=== PATIENT | female | born 1930 | race Caucasian/White ===

== ENCOUNTER 2017-07-02 15:17 | Observation (INO) | payer MEDICARE, BC ==
[2017-07-02] MEDS ORDERED: NS 0.9% 1000 ML* 1,000 ML IV ONE ×2 (15:45→18:18)
[2017-07-02] MEDS ORDERED: Ondansetron INJ* 2 MG/ML VIAL IV ONE ×2 (15:49→19:23)
[2017-07-02 16:47] LABS: ABS Basophils 0 10^3/ul (0-0.2); ABS Eosinophils 0 10^3/ul (0-0.6); ABS Lymphocytes 0.6 10^3/ul (1.0-4.8); ABS Monocytes 0.4 10^3/ul (0-0.8); ABS Neutrophils 6.9 10^3/ul (1.5-7.7); ABS Nucleated RBC 0 10^3/ul; Eosinophil % 0 % (0-6); Hematocrit 44 % (35-47); Hemoglobin 14.7 g/dl (12.0-16.0); Lymphocyte % 7.5 % (25-47); Mean Corpuscular HGB Conc 34 g/dl (31-36); Mean Corpuscular Hemoglobin 32 pg (27-31); Mean Corpuscular Volume 96 fL (80-97); Mean Platelet Volume 8.1 um3 (7.4-10.4); Nucleated Red Blood Cells % 0.1; Platelet Count 222 10^3/ul (150-450); Red Blood Count 4.58 10^6/ul (4.0-5.4); Red Cell Distribution Width 14 % (10.5-15)
[2017-07-02 16:57] LABS: INR 0.95 (0.77-1.02)
[2017-07-02 17:07] LABS: EGFR Non-African American 78.2 (>60)
--- NOTE | 2017-07-02 17:16 | RAD ---
INDICATION: Cough COMPARISON: Chest x-ray dated December 19, 2016 TECHNIQUE: PA and lateral views of the chest were obtained. FINDINGS: The heart and mediastinum are normal in size and contour. Similar to the prior radiograph there is mild calcification overlying the arch of the aorta. The lungs are grossly clear. There is no evidence of large pleural effusion. Visualized bones are normal for the patient's age. There is no radiographic evidence of free air beneath the diaphragm IMPRESSION: No radiographic evidence of acute cardiopulmonary disease.
--- NOTE | 2017-07-02 19:06 | ED ---
August Sykes Gabriel, scribed for Johanna Stanley MD on 07/02/17 at 1546 . GI/ HPI - HPI Summary HPI Summary: This patient is a 87 year old F BIBA to [facility] from [facility] c/o vomiting for the past couple days. The last episode was sometime yesterday. Patient reports nausea, intermittent cough, and decreased appetite. Patient denies diarrhea, ABD pain, SOB, CP, and palpitations. Hx uterine cancer - History of Current Complaint Time Seen by Provider: 07/02/17 15:31 Stated Complaint: NAUSEA/VOMITING Hx Obtained From: Patient Onset/Duration: Started Days Ago - 2, Still Present Timing: Intermittent Severity: Mild Current Severity: None Associated Signs and Symptoms: Positive: Nausea, Cough - Additional Pertinent History Primary Care Physician: LESVIA - Allergy/Home Medications Allergies/Adverse Reactions: Allergies Allergy/AdvReac Type Severity Reaction Status Date / Time diazepam Allergy Intermediate Hives Verified 07/02/17 16:11 blue dye Allergy Unknown Unknown Verified 07/02/17 16:11 Reaction Details duloxetine Allergy Unknown Unknown Verified 07/02/17 16:11 Reaction Details pregabalin AdvReac Severe Joint Pain Verified 07/02/17 16:11 meperidine AdvReac Intermediate Nausea And Verified 07/02/17 16:11 Vomiting onabotulinumtoxinA AdvReac Intermediate Nausea And Verified 07/02/17 16:11 [From Botox] Vomiting oxycodone AdvReac Intermediate Nausea And Verified 07/02/17 16:11 Vomiting propoxyphene AdvReac Intermediate Nausea And Verified 07/02/17 16:11 [From Darvocet-N] Vomiting Home Medications: Home Medications Acetaminophen TAB* [Tylenol TAB*] 650 mg PO Q4H PRN MDD 2600 mg 07/02/17 [ History Confirmed 07/02/17] Acetaminophen TAB* [Tylenol TAB*] 650 mg PO TID 07/02/17 [History Confirmed ] Calcium Carb/Mag Hydrox/Simeth [Antacid Multi-Symptom] 1 chw PO TID PRN [History Confirmed 07/02/17] Cholecalciferol CAP/TAB(NF) [Vitamin D3 CAP/TAB (NF)] 50,000 unit PO MONTHLY [History Confirmed 07/02/17] Hydrocortisone 2.5% CREAM(NF) 1 applic TOPICAL DAILY PRN 07/02/17 [History Confirmed 07/02/17] Lidocaine HCl [Aspercreme W/Lidocaine] 4 % TOPICAL Q8HR PRN 07/02/17 [History Confirmed 07/02/17] Multivit-Min/Iron/Folic/Lutein [Centrum Silver Women Tablet] 1 tab PO DAILY [History Confirmed 07/02/17] Ondansetron TAB* [Zofran 4 MG Tab*] 4 mg PO Q6H PRN 07/02/17 [History Confirmed 07/02/17] Oxymetazoline 0.05% NASAL SPR* [Afrin 0.05% NASAL SPRAY*] 2 spray BOTH NARES Q4HR PRN 07/02/17 [History Confirmed 07/02/17] Senna TAB* [Senokot TAB*] 1 tab PO BEDTIME 07/02/17 [History Confirmed 07/02/17] Vit C/E/Zn/Coppr/Lutein/Zeaxan [Preservision Areds 2 Softgel] 1 cap PO BID 07/02 [History Confirmed 07/02/17] PMH/Surg Hx/FS Hx/Imm Hx Endocrine/Hematology History: Denies: Hx Anticoagulant Therapy Cardiovascular History: Denies: Hx Auto Implanted Cardiovert Defib Musculoskeletal History: Reports: Hx Fibromyalgia, Other Musculoskeletal History - bilateral hip replacement, current arm fracture Sensory History: Reports: Hx Contacts or Glasses - pt doesn't have glassess with her Opthamlomology History: Reports: Hx Contacts or Glasses - pt doesn't have glassess with her Neurological History: Reports: Hx Dementia, Other Neuro Impairments/Disorders - fibromyalgia, insomnia - Surgical History Surgery Procedure, Year, and Place: hysterectomy. appendectomy. TKA. bilat [facility]. back surgery - Immunization History Date of Tetanus Vaccine: unk Date of Influenza Vaccine: unk - Family History Known Family History: Positive: Unknown - due to pt's dementia - Social History Alcohol Use: Rare Hx Substance Use: No Substance Use Type: Reports: None Hx Tobacco Use: No Smoking Status (MU): Never Smoked Tobacco Have You Smoked in the Last Year: No Review of Systems Negative: Palpitations, Chest Pain Positive: Cough. Negative: Shortness Of Breath Positive: Vomiting, Nausea. Negative: Abdominal Pain, Diarrhea All Other Systems Reviewed And Are Negative: Yes Physical Exam - Summary Physical Exam Summary: GENERAL: Patient is a well developed and nourished F who is lying comfortable in the stretcher. Patient is not in any acute respiratory distress. HEAD AND FACE: Normocephalic EYES: PERRLA, EOMI x 2. EARS: Hearing grossly intact. MOUTH: Oropharynx within normal limits. NECK: Supple, trachea is midline, no adenopathy, no JVD, no carotid bruit. CHEST: Symmetric, no tenderness at palpation LUNGS: crackles in the right lung CVS: Regular rate and rhythm, S1 and S2 present, no murmurs or gallops appreciated. ABDOMEN: Soft, non-tender. Bowel sounds are normal. No abdominal abnormal pulsations. EXTREMITIES: Full ROM in all major joints, no edema, no cyanosis or clubbing. NEURO: Alert and oriented x 3. No acute neurological deficits. Speech is normal and follows commands. SKIN: Dry and warm Triage Information Reviewed: Yes Vital Signs On Initial Exam: Initial Vitals Temp Pulse Resp BP Pulse Ox 36.8 C 78 16 171/80 98 07/02/17 16:04 07/02/17 16:04 07/02/17 16:04 07/02/17 16:04 07/02/17 16:04 Vital Signs Reviewed: Yes Diagnostics - Vital Signs Vital Signs Temp Pulse Resp BP Pulse Ox 07/02/17 16:04 36.8 C 78 16 171/80 98 - Laboratory Lab Results: Lab Results 07/02/17 07/02/17 07/02/17 Range/Units 16:11 16:11 16:11 WBC 8.0 (3.5-10.8) 10^3/ul RBC 4.58 (4.0-5.4) 10^6/ul Hgb 14.7 (12.0-16.0) g/dl Hct 44 (35-47) % MCV 96 (80-97) fL MCH 32 H (27-31) pg MCHC 34 (31-36) g/dl RDW 14 (10.5-15) % Plt Count 222 (150-450) 10^3/ul MPV 8.1 (7.4-10.4) um3 Neut % (Auto) 86.8 H (38-83) % Lymph % (Auto) 7.5 L (25-47) % Miller % (Auto) 5.5 (0-7) % Eos % (Auto) 0 (0-6) % Baso % (Auto) 0.2 (0-2) % Absolute Neuts (auto) 6.9 (1.5-7.7) 10^3/ul Absolute Lymphs (auto) 0.6 L (1.0-4.8) 10^3/ul Absolute Monos (auto) 0.4 (0-0.8) 10^3/ul Absolute Eos (auto) 0 (0-0.6) 10^3/ul Absolute Basos (auto) 0 (0-0.2) 10^3/ul Absolute Nucleated RBC 0 10^3/ul Nucleated RBC % 0.1 INR (Anticoag Therapy) 0.95 (0.77-1.02) APTT 34.9 (26.0-36.3) seconds Sodium 126 L (139-145) mmol/L Potassium 3.6 (3.5-5.0) mmol/L Chloride 90 L (101-111) mmol/L Carbon Dioxide 26 (22-32) mmol/L Anion Gap 10 (2-11) mmol/L BUN 17 (6-24) mg/dL Creatinine 0.71 (0.51-0.95) mg/dL Est GFR ( Amer) 100.6 (>60) Est GFR (Non-Af Amer) 78.2 (>60) BUN/Creatinine Ratio 23.9 H (8-20) Glucose 114 H (70-100) mg/dL Lactic Acid (0.5-2.0) mmol/L Calcium 9.5 (8.6-10.3) mg/dL Magnesium 1.9 (1.9-2.7) mg/dL Total Bilirubin 0.80 (0.2-1.0) mg/dL AST 26 (13-39) U/L ALT 15 (7-52) U/L Alkaline Phosphatase 66 (34-104) U/L Troponin I 0.00 (<0.04) ng/mL B-Natriuretic Peptide ( - 100) pg/mL Total Protein 8.0 (6.4-8.9) g/dL Albumin 4.9 (3.2-5.2) g/dL Globulin 3.1 (2-4) g/dL Albumin/Globulin Ratio 1.6 (1-3) Lipase 15 (11.0-82.0) U/L 07/02/17 07/02/17 Range/Units 16:11 16:11 WBC (3.5-10.8) 10^3/ul RBC (4.0-5.4) 10^6/ul Hgb (12.0-16.0) g/dl Hct (35-47) % MCV (80-97) fL MCH (27-31) pg MCHC (31-36) g/dl RDW (10.5-15) % Plt Count (150-450) 10^3/ul MPV (7.4-10.4) um3 Neut % (Auto) (38-83) % Lymph % (Auto) (25-47) % Miller % (Auto) (0-7) % Eos % (Auto) (0-6) % Baso % (Auto) (0-2) % Absolute Neuts (auto) (1.5-7.7) 10^3/ul Absolute Lymphs (auto) (1.0-4.8) 10^3/ul Absolute Monos (auto) (0-0.8) 10^3/ul Absolute Eos (auto) (0-0.6) 10^3/ul Absolute Basos (auto) (0-0.2) 10^3/ul Absolute Nucleated RBC 10^3/ul Nucleated RBC % INR (Anticoag Therapy) (0.77-1.02) APTT (26.0-36.3) seconds Sodium (139-145) mmol/L Potassium (3.5-5.0) mmol/L Chloride (101-111) mmol/L Carbon Dioxide (22-32) mmol/L Anion Gap (2-11) mmol/L BUN (6-24) mg/dL Creatinine (0.51-0.95) mg/dL Est GFR ( Amer) (>60) Est GFR (Non-Af Amer) (>60) BUN/Creatinine Ratio (8-20) Glucose (70-100) mg/dL Lactic Acid 0.8 (0.5-2.0) mmol/L Calcium (8.6-10.3) mg/dL Magnesium (1.9-2.7) mg/dL Total Bilirubin (0.2-1.0) mg/dL AST (13-39) U/L ALT (7-52) U/L Alkaline Phosphatase (34-104) U/L Troponin I (<0.04) ng/mL B-Natriuretic Peptide 416 H ( - 100) pg/mL Total Protein (6.4-8.9) g/dL Albumin (3.2-5.2) g/dL Globulin (2-4) g/dL Albumin/Globulin Ratio (1-3) Lipase (11.0-82.0) U/L Result Diagrams: 07/02/17 16:11 07/02/17 16:11 Lab Statement: Any lab studies that have been ordered have been reviewed, and results considered in the medical decision making process. - Radiology CXR Radiology Interpretation Completed By: Radiologist - No radiographic evidence of acute cardiopulmonary disease. ED physician has reviewed this radiology report. - EKG 1559 Cardiac Rate: NL EKG Rhythm: Sinus Rhythm - at 80 BPM EKG Interpretation: atrial premature complex GIGU Course/Dx - Course Assessment/Plan: This patient is a 87 year old F BIBA to [facility] from [facility] c/o vomiting for the past couple days. The last episode was sometime yesterday. Patient reports nausea, intermittent cough, and decreased appetite. Patient denies diarrhea, ABD pain, SOB, CP, and palpitations. Hx uterine cancer. CXR reveals, per radiologist, No radiographic evidence of acute cardiopulmonary disease. ED physician has reviewed this radiology report. Test results with no significant abnormalities except for a sodium of 126. In the ED course the patient was given zofran and IV fluids. The patient will be signed out to Dr. Lomeli awaiting re-eval. - Diagnoses Provider Diagnoses: Hyponatremia Discharge - Sign-Out/Discharge Documenting (check all that apply): Sign-Out Patient Signing out patient TO: Young Lomeli - Discharge Plan Referrals: Ca Gomez MD [Primary Care Provider] - The documentation as recorded by the August kennedy Gabriel accurately reflects the service I personally performed and the decisions made by , Johanna Stanley MD.
[2017-07-02 20:59] LABS: Urine Appearance Clear; Urine Blood Negative (Negative); Urine Color Yellow; Urine Ketones 1+ (Negative); Urine Protein 1+(30 mg/dL) (Negative); Urine Specific Gravity 1.015 (1.010-1.030); Urine Urobilinogen Negative (Negative)
[2017-07-02] MEDS ORDERED: Piperacillin/Tazobac ADVAN(*) 3.375 GM in NS 0.9% 100 ML* 100 ML IVPB ONE (21:00)
--- NOTE | 2017-07-02 21:05 | ED ---
Karen Sykes Elizabeth, scribed for Young Lomeli MD on 07/02/17 at 2052 . Progress - Progress Note Progress Note: Upon re-evaluation at 20:00 patient was still symptomatic 1 hour after receiving a 2nd dose of 8mg Zofran. The patient has difficulty eating. Discussed care of patient with Dr. Fontana who agreed to admit the patient to [facility] [place] [facility]. Patient will be admitted to [facility] with dx of vomiting. Re-Evaluation - Re-Evaluation 20:00 Re-Evaluation Time: 20:00 Change: Unchanged Comment: Patient is still symptomatic 1 hour after receiving 2nd dose of 8mg Zofran. The patient has difficulty eating. Course/Dx - Diagnoses Provider Diagnoses: Vomiting - Provider Notifications Discussed Care Of Patient With: Singh Tapia MD Time Discussed With Above Provider: 20:30 Instructed by Provider To: Admit As Inpatient Discharge - Sign-Out/Discharge Documenting (check all that apply): Discharge/Admit/Transfer - Discharge Plan Condition: Stable Disposition: ADMITTED TO [facility] Referrals: Ca Gomez MD [Primary Care Provider] - The documentation as recorded by the Karen kennedy Elizabeth accurately reflects the service I personally performed and the decisions made by Armani villanueva Abdul, MD.
[2017-07-02] MEDS ORDERED: PROCHLORPERAZINE INJ 5 MG/ML 2 ML VIAL IV PRN (21:28)
[2017-07-02] MEDS ORDERED: Acetaminophen TAB* 325 MG PO PRN (21:28)
[2017-07-02] MEDS ORDERED: Ondansetron 40 MG VIAL* 2 MG/ML 20 ML VIAL IV PRN (21:28)
[2017-07-02] MEDS ORDERED: traMADol TAB* 50 MG PO PRN (21:30)
[2017-07-02] MEDS ORDERED: NS 0.9% 1000 ML* 1,000 ML IV SCH (21:30)
[2017-07-02] MEDS ORDERED: hydrALAZINE IV* 20 MG/ML VIAL IV SLOW PU PRN (21:33)
[2017-07-02] MEDS ORDERED: Iohexol 300* (CONTRAST) 10 ML SDV IV ONE (21:35)
--- NOTE | 2017-07-02 22:18 | RAD ---
INDICATION: Nausea and vomiting COMPARISON: Most recent comparison CT of the brain is dated December 17, 2016 TECHNIQUE: Contiguous axial sections of the brain were obtained from the skull base to the vertex without contrast. FINDINGS: The ventricles, cisterns and sulci are within normal limits. There is very mild periventricular and subcortical white matter hypoattenuation most consistent with mild chronic small vessel disease. The henderson-white matter differentiation is adequately maintained and there is no sulcal effacement. No significant focal abnormality or mass effect is present. There is no evidence for intracranial hemorrhage. No significant focal osseous abnormality is present. The visualized portion of the paranasal sinuses appear clear. The mastoid air cells are well aerated bilaterally. IMPRESSION: No acute intracranial abnormality.
--- NOTE | 2017-07-02 22:26 | RAD ---
CLINICAL HISTORY: Nausea and vomiting. Relevant surgical history includes hysterectomy, appendectomy and "back surgery" COMPARISON: None TECHNIQUE: Contrast enhanced CT examination of the abdomen and pelvis from the lung bases through the initial tuberosities. The patient received 80 mL Omnipaque 300 intravenously prior to imaging.The patient received oral contrast as well prior to imaging. FINDINGS: VISUALIZED LUNG BASES: The visualized lung bases are grossly clear. There is no pleural effusion. ABDOMEN AND PELVIS: The superiormost portion of the hepatic dome and superior most portion of the spleen are cut from the [id number]. There is a small hiatal hernia. The visualized portions of the liver and spleen are normal. The pancreas and adrenal glands are grossly normal in appearance. The gallbladder is fluid-filled and top normal in diameter measuring 4 cm. There is no definite pericholecystic fluid. There is no hyperattenuating material in the lumen. The kidneys are normal in appearance without focal mass, calcification or signs of hydronephrosis. Evaluation of the gastrointestinal tract is limited in the absence of oral contrast. The small and large bowel are not distended. The appendix is not visualized consistent with the patient's reported surgical history. There are numerable distal colonic diverticula becoming more concentrated at the rectosigmoid colon. Streak artifact from the bilateral hip prostheses Limited evaluation of the pelvis the level of the hips. There is no gross retroperitoneal or mesenteric lymphadenopathy. The uterus is surgically absent. The abdominal aorta and iliac arteries are normal in course and diameter. Postsurgical changes of the lumbar spine include transpedicular and posterior neena fixation of L4-S5 with prosthetic intervertebral disc spacers. Degenerative changes at L2/L3 include sclerotic change of the articulating endplates. IMPRESSION: 1. Diverticulosis without definite inflammatory changes consistent with diverticulitis. 2. The gallbladder is top normal in diameter and is fluid-filled. There are no definite inflammatory changes within the limitations of CT. If the patient is exhibiting right upper quadrant tenderness specifically, superior characterization of the gallbladder can be made with ultrasound. 3. Chronic, degenerative and postsurgical changes described in the body the report unlikely to be directly related to the patient's current presentation.
[2017-07-02] MEDS ORDERED: cefTRIAXone(*) 1 GM in NS 0.9% 50 ML* 50 ML IVPB SCH (23:00)
[2017-07-02] MEDS: Heparin VIAL(*) 5000 UNITS/ML VIAL (FIVE THOUSAND) SUBCUT SCH (23:01)
[2017-07-02 23:29] LABS: ABS Basophils 0 10^3/ul (0-0.2); ABS Eosinophils 0 10^3/ul (0-0.6); ABS Lymphocytes 0.8 10^3/ul (1.0-4.8); ABS Monocytes 0.6 10^3/ul (0-0.8); ABS Neutrophils 6.9 10^3/ul (1.5-7.7); ABS Nucleated RBC 0 10^3/ul; Eosinophil % 0 % (0-6); Hematocrit 38 % (35-47); Lymphocyte % 9.8 % (25-47); Mean Corpuscular HGB Conc 34 g/dl (31-36); Mean Corpuscular Hemoglobin 32 pg (27-31); Mean Corpuscular Volume 96 fL (80-97); Nucleated Red Blood Cells % 0; Platelet Count 189 10^3/ul (150-450); Red Cell Distribution Width 14 % (10.5-15); White Blood Count 8.4 10^3/ul (3.5-10.8)
[2017-07-02] MEDS ORDERED: Saline NASAL SPRAY 0.65%* BTL BOTH NARES PRN (23:30)
[2017-07-03] MEDS ORDERED: traZODone TAB* 50 MG TAB PO SCH (01:40)
[2017-07-03 05:19] LABS: ABS Basophils 0 10^3/ul (0-0.2); ABS Eosinophils 0 10^3/ul (0-0.6); ABS Lymphocytes 0.8 10^3/ul (1.0-4.8); ABS Monocytes 0.8 10^3/ul (0-0.8); ABS Neutrophils 6.1 10^3/ul (1.5-7.7); ABS Nucleated RBC 0 10^3/ul; Eosinophil % 0 % (0-6); Hematocrit 38 % (35-47); Hemoglobin 12.8 g/dl (12.0-16.0); Lymphocyte % 10.8 % (25-47); Mean Corpuscular HGB Conc 34 g/dl (31-36); Mean Corpuscular Hemoglobin 32 pg (27-31); Mean Corpuscular Volume 96 fL (80-97); Mean Platelet Volume 8.2 um3 (7.4-10.4); Nucleated Red Blood Cells % 0; Platelet Count 195 10^3/ul (150-450); Red Blood Count 3.96 10^6/ul (4.0-5.4); Red Cell Distribution Width 13 % (10.5-15); White Blood Count 7.7 10^3/ul (3.5-10.8)
[2017-07-03 05:30] LABS: INR 1.02 (0.77-1.02)
[2017-07-03 05:45] LABS: EGFR Non-African American 82.2 (>60)
[2017-07-03] MEDS: Heparin VIAL(*) 5000 UNITS/ML VIAL (FIVE THOUSAND) SUBCUT SCH ×2 (06:24→13:35)
[2017-07-03] MEDS ORDERED: Potassium Chlor TAB* 20 MEQ TAB.ER PO ONE (08:11)
[2017-07-03] MEDS: Gabapentin CAP(*) 100 MG PO SCH ×2 (08:31→13:10)
--- NOTE | 2017-07-03 08:35 | HP ---
CC: Dr. Gomez * HISTORY AND PHYSICAL: DATE OF ADMISSION: 07/02/17 PRIMARY CARE PROVIDER: Dr. Gomez. ATTENDING PHYSICIAN WHILE IN THE HOSPITAL: Beto Fontana MD * (report dictated by Donnell Martínez NP). CHIEF COMPLAINT: 1. Nausea. 2. Vomiting. HISTORY OF PRESENT ILLNESS: Mrs. Jones is an 87-year-old female patient. She has a history of dementia, fibromyalgia, insomnia, uterine cancer, rheumatoid arthritis, history of depression, and anxiety. She also carries a history of neuropathy, history of migraines and insomnia. She is coming into our ER today, because she says that the last couple of days she has had progressively worsening nausea and vomiting. She has had headache just prior to and during the initial ER visit, but there is no headache now. She states she had been having nausea, vomiting. It is no worse and her appetite has been down. She does not really been feeling like eating because she is nauseous. She denies any abdominal discomfort. There have been no fevers, cough. No diarrhea. She said she had a bowel movement yesterday. She denies feeling bloated or distended. She says that she has no headache now but she does note that her blood pressure has been running high and they have been keeping an eye on her according to the patient at [place] where she is from. There have been no reports of chest pain. No reports of shortness of breath. She is clearly having nausea with vomiting and no abdominal discomfort. She came into the ED today. She required several rounds of antiemetics but despite that she is still nauseous, but really eating. She appeared to be dehydrated, possibly UTI and we were asked to evaluate for admission. PAST MEDICAL HISTORY: Significant for: 1. Dementia. 2. Fibromyalgia. 3. Insomnia. 4. Uterine cancer. 5. Rheumatoid arthritis. 6. Anxiety. 7. Depression. 8. Neuropathy. 9. Insomnia. 10. Migraines. PAST SURGICAL HISTORY: According to the patient, she has had a left total hip replacement and she has had a right total knee replacement. She has had a hysterectomy and appendectomy. MEDICATIONS: Home meds according to the list that was provided by [facility] include: 1. Zofran 4 mg every 6 hours as needed. 2. Tramadol 50 mg every 6 hours as needed. 3. Afrin nasal spray, two sprays both naris every 4 hours as needed. 4. Robitussin 10 cc p.o. every 6 hours as needed. 5. Calcium carbonate with magnesium hydroxide and simethicone one tablet p.o. t.i.d. as needed. 6. Lidocaine 4% topically every 8 hours as needed. 7. Hydrocortisone cream 2.5% one application topically daily as needed. 8. Tylenol 650 mg every 4 hours as needed. 9. Gabapentin 200 mg p.o. t.i.d. 10. Tylenol 650 mg p.o. t.i.d. 11. PreserVision one capsule p.o. b.i.d. 12. Plaquenil 200 mg p.o. b.i.d. 13. Genteal two drops both eyes b.i.d. as needed. 14. Colace 100 mg p.o. b.i.d. 15. Vitamin D3 50,000 units p.o. monthly. 16. Trazodone 100 mg at bedtime. 17. Ultram 50 mg at bedtime. 18. Zoloft 100 mg p.o. at bedtime. 19. Senna one tablet at bedtime. 20. MiraLAX 17 g p.o. daily. 21. Multivitamin one tablet p.o. daily. ALLERGIES: Her allergy to medications include VALIUM, B12, CYMBALTA, LYRICA, DEMEROL, BOTOX, OXYCODONE, and DARVOCET. FAMILY HISTORY: She said both her parents of old age. SOCIAL HISTORY: She does not smoke, does not drink. Surrogate decision maker is her daughter, Lizbeth, who I did call and update and patient does reside at [place]. REVIEW OF SYSTEMS: There is no documented fever. She denies having any significant weight change. There is no ear discharge. She denies having any rhinorrhea. No sore throat. No thyroid enlargement. Denied any chest pain. There is no orthopnea. There is no nocturnal dyspnea. She denies any abdominal pain. There was nausea. There was vomiting. There is no dysuria, no frequency, no seizure. No loss of consciousness, no pruritus, no skin ulcerations. PHYSICAL EXAMINATION GENERAL: At this time, Mrs. Jones is an 87-year-old female patient. She is sitting in the ED stretcher. She does not appear to be in any acute distress. VITAL SIGNS: Blood pressure was 171/86, last blood pressure on the monitor was 142/81, pulse was 79, respirations were 18, O2 sat 96%, temperature 98. HEENT: Head: Atraumatic and normocephalic. Eyes: EOMs are intact. Sclerae are anicteric, not pale. Throat: Oral mucosa appears to be moist. No oropharyngeal erythema. NECK: Supple. LUNGS: Clear to auscultation. No wheezes, rales or rhonchi. HEART: Sounds S1, S2. Regular rate and rhythm. No murmurs, rubs or gallops. ABDOMEN: Bowel sounds hyperactive. She was nondistended, flat, nontender. EXTREMITIES: Pulses were 2+ throughout. She is able to move all 4 extremities with 5/5 strength. NEUROLOGIC: She is awake, alert. She is oriented to herself and place, but confused to time. Speech clear. Tongue midline. Fire Eater are equal. No gross focal deficits. SKIN: Grossly intact. DIAGNOSTIC STUDIES/LAB DATA: Her labs today revealing WBC of 8.0, RBC of 4.58 , hemoglobin 14.7, hematocrit 44, platelet count 222. The INR was 0.95, PTT of 34.9. The sodium was 136, potassium of 3.6, chloride of 90, bicarb 26, BUN 17, creatinine of 0.71, glucose of 114, lactate 0.8, calcium 9.5, mag 1.9. Total bili 0.8. AST 26, ALT 15. Alk phos was 66, troponin 0. BNP of 416. Albumin 4.9, lipase of 15. Urine showed 1+ protein, 1+ ketones, 1+ leukocyte esterase, 2 + rbc. She did have a chest x-ray obtained today, impression: No radiographic evidence of acute cardiopulmonary disease. She did have an EKG obtained today, which shows a normal sinus rhythm with PAC rate of 80. I did not appreciate any ST elevation or T-wave inversion noted on this EKG. Compared to the previous EKG, it does appear to be similar. Old medical records were reviewed. ASSESSMENT AND PLAN: Mrs. Jones is an 87-year-old female patient coming into the emergency department today with complaints of nausea, vomiting. She did have a headache on initial presentation but none now. We were asked to evaluate her. She will be admitted under observation status for: 1. Intractable nausea and vomiting. Etiology is unclear. She may have a gastroenteritis, although this is atypical given the fact that she does not have any diarrhea with it. There has been no fever. My plan would be to just check a CT abdomen and pelvis to make sure there is no acute abdominal pathology that we are missing here. She is not really tender. She is at risk for obstruction but she had a bowel movement yesterday, so I think it is less likely on the list. My plan will be to give her clear liquids, IV fluids, antiemetics, continue with supportive care, and follow. 2. Dementia. Continue meds as prescribed and supportive care. 3. Fibromyalgia. Continue meds as prescribed. 4. Insomnia. We will continue her trazodone. 5. Osteoarthritis. Continue her Plaquenil. 6. Uterine cancer. Follow up with PCP. 7. Depression and anxiety. Continue meds as prescribed. 8. Neuropathy. Continue her meds as prescribed. 9. History of migraines. P.r.n. Tylenol has been ordered. 10. Code status: She does wish to be a DNR. 11. Fluids, electrolytes, and nutrition: She can have a clear liquid diet. 12. DVT prophylaxis: I have ordered heparin subcutaneous. TIME SPENT: Time spent on the admission was 60 minutes; greater than half of the time was spent [id number] with the patient obtaining my history and physical, other half of the time was spent going over the plan of care with the patient and implementing plan of care. I did discuss the plan of care with my attending, Dr. Fontana, he is in agreement. DONNELL MARTÍNEZ, HARVEY [id number]/CPS #: [id number] LIZA
[2017-07-03] MEDS ORDERED: Hydroxychloroquine TAB* 200 MG PO SCH (09:00)
[2017-07-03] MEDS ORDERED: Docusate CAP* 100 MG PO SCH (09:00)
[2017-07-03 11:59] VITALS: BP 144/75
[2017-07-03] MEDS ORDERED: Senna TAB PO SCH (21:00)
[2017-07-03] MEDS ORDERED: Sertraline* 100 MG TAB PO SCH (21:00)
--- NOTE | 2017-07-04 08:40 | DS ---
ADDENDUM NOW INCLUDED ON THIS REPORT CC: Ca Gomez MD * DISCHARGE SUMMARY: DATE OF ADMISSION: 07/02/17 DATE OF DISCHARGE: 07/03/17 PATIENT OF: Beto Fontana MD ATTENDING HOSPITALIST: Usman Barrios MD * (DICTATED BY ROSARIO AMBROSE) PRIMARY CARE PHYSICIAN: Ca Gomez MD CHIEF COMPLAINT: Nausea and vomiting. CONSULTATIONS: None. ADMITTING DIAGNOSES: 1. Nausea and vomiting. 2. Dementia. 3. Fibromyalgia. 4. Insomnia. 5. History of uterine cancer. 6. Rheumatoid arthritis. 7. Anxiety and depression. 8. Neuropathy. 9. Migraine headaches. DISCHARGE DIAGNOSES: 1. Nausea and vomiting. 2. Dementia. 3. Fibromyalgia. 4. Insomnia. 5. History of uterine cancer. 6. Rheumatoid arthritis. 7. Anxiety and depression. 8. Neuropathy. 9. Migraine headaches. 10. Possible gastroenteritis. BRIEF MEDICAL HISTORY: Mrs. Jones is a pleasant 87-year-old female with history of dementia, fibromyalgia and rheumatoid arthritis as well as depression and anxiety, who presented to the emergency room last night with complaints of 2 days' history of progressively worsening nausea and vomiting. The patient notes that she has had a little headache prior to the onset of symptoms, but denies any headache upon presentation. She denies any associated abdominal pain, changes in the bowel habits, fever or chills. She has been in her normal state of health until 2 days ago when she started to have these episodes. Because of her progressive nausea and vomiting, she is not able to eat anything or keep any fluid down. She denies any recent sick contact; however , she notes that prior to the onset of her symptoms she has been out to an organic farm and had lunch there that consisted of some pork sandwich. She presented to the emergency room and had laboratory workup that revealed hyponatremia and hypokalemia, but her white count was normal and had a CT scan done of the abdomen and pelvis with no acute findings noted. The patient was given some Zofran in the emergency room; however, she was not able to tolerate any fluid oral intake for which we were contacted to see the patient for possible admission. HOSPITAL COURSE: The patient was seen and admitted under hospitalist services for observation overnight. She received a couple of doses of Zofran and kept on clear liquid diet and was given IV fluid hydration. She was noted to have hyponatremia for which her I's and O's were restricted with significant improvement of her sodium on that following morning's labs. She was noted also to have hypokalemia, which was replaced using oral supplements. The patient was doing much better on the following morning and denied any recurrent nausea or vomiting overnight. Her vitals were stable and she showed no evidence of febrile illness or tachycardia. We started her on clear liquid diet for breakfast and then advanced to regular diet for lunch which she tolerated them both. She was ambulatory out of bed and denied any recurrent symptoms of nausea or vomiting. On exam today, she was alert and oriented, comfortable and breathing was nonlabored. Her lungs were clear to auscultation bilaterally. Her heart was regular rate and rhythm without rubs, murmurs, or gallops. Her abdomen was soft, nontender, and nondistended without hernias, masses, or hepatosplenomegaly. Her vitals were reviewed and they were all within normal limits. We were planning on discharging her back to [facility] today and will be seen by her primary care physician next week for a followup. DISCHARGE MEDICATIONS: Include: 1. Tylenol 650 mg p.o. q.6 hours as needed for pain or fever. 2. Calcium carbonate 1 chewable tablet 3 times daily as needed for heartburn. 3. Cholecalciferol tablets 50,000 units p.o. daily. 4. Dextran/hypromellose 2 drops in both eyes once daily. 5. Colace 100 mg p.o. b.i.d. 6. Neurontin 200 mg p.o. t.i.d. 7. Robitussin 10 mL p.o. q.6 hours as needed for cough. 8. Hydrocortisone cream 2.5% one application topically as directed. 9. Plaquenil 200 mg p.o. b.i.d. 10. Lidocaine cream 4% topical use as directed. 11. Multivitamin 1 tablet daily. 12. Zofran 4 mg tablets q.6 hours as needed for nausea. 13. MiraLAX 17 g p.o. q.a.m. as needed for constipation. 14. Senokot 1 tablet p.o. q.h.s. 15. Zoloft 100 mg p.o. q.h.s. 16. Tramadol 50 mg p.o. q.6 hours as needed for pain. 17. Trazodone 100 mg p.o. q.h.s. PROBLEM LIST: Nausea and vomiting, resolved overnight, likely in account to gastroenteritis with the absence of any diarrhea. The patient had recovered well after IV fluid hydration. She is able to tolerate p.o. fluid and diet and will be discharged home in a stable condition. ADDENDUM: DISCHARGE SUMMARY: After the patient was discharged from the hospital and discharge summary was dictated, there was a flag on her chart regarding microbiology findings. Her urine culture apparently grew E. coli with moderate amount and sensitivity report was pending at the time of this dictation. I have reviewed the allergy list the patient has and we will plan on covering her with Macrobid 100 mg b.i.d. for 5 days to cover for urinary tract infection possibility. I have called her residence at [facility] and spoke to her nurse, and the prescription was electronically submitted to her pharmacy, and the patient will start taking her Macrobid as of tonight and we will plan to follow up with her next week with primary care physician. ROSARIO AMBROSE [id number]/CPS #: [id number]/CPS #: [id number] LIZA
--- NOTE | 2017-07-04 13:04 | DS ---
ADDENDUM: DISCHARGE SUMMARY: After the patient was discharged from the hospital and discharge summary was dictated, there was a flag on her chart regarding microbiology findings. Her urine culture apparently grew E. coli with moderate amount and sensitivity report was pending at the time of this dictation. I have reviewed the allergy list the patient has and we will plan on covering her with Macrobid 100 mg b.i.d. for 5 days to cover for urinary tract infection possibility. I have called her residence at [place] and spoke to her nurse and the prescription was electronically submitted to her pharmacy, and the patient will start taking her Macrobid as of tonight and we will plan to follow up with her next week with primary care physician. ROSARIO AMBROSE [id number]/CPS #: [id number] MTDD
== END 2017-07-03 14:05 | disposition home or self-care (01) ==
LOC: ED 15:17 → MED 21:24
PROVIDERS: ADMIT Hospitalist; ATTEND Internal Medicine
DX: R11.2 Nausea with vomiting, unspecified (principal); F03.90 Unspecified dementia, unspecified severity, without behavioral disturbance, psychotic disturbance, mood disturbance, and anxiety; M79.7 Fibromyalgia; G47.00 Insomnia, unspecified; M06.9 Rheumatoid arthritis, unspecified; F41.8 Other specified anxiety disorders; G43.909 Migraine, unspecified, not intractable, without status migrainosus; G62.9 Polyneuropathy, unspecified; Z85.42 Personal history of malignant neoplasm of other parts of uterus; Z79.899 Other long term (current) drug therapy; Z88.8 Allergy status to other drugs, medicaments and biological substances; M19.90 Unspecified osteoarthritis, unspecified site; K57.90 Diverticulosis of intestine, part unspecified, without perforation or abscess without bleeding; I49.1 Atrial premature depolarization
CPT/HCPCS: 36415; 70450; 71046; 74177; 80048; 80053; 81003; 81015; 83605; 83690; 83735; 83880; 84484; 85025; 85610; 85730; 87077; 87086; 87186; 87641; 93005; 96365; 96372; 96375; 99284; A9270-GY; G0378; J0696; J0780; J1644; J2543; Q9967

== ENCOUNTER 2017-09-29 02:09 | Emergency (ER) | payer MEDICARE, BC ==
[2017-09-29] MEDS ORDERED: Ondansetron ODT TAB* 4 MG ONE (02:21)
[2017-09-29] MEDS ORDERED: Ondansetron ODT TAB* 4 MG PO ONE (02:22)
[2017-09-29] MEDS ORDERED: NS 0.9% 1000 ML* 2,000 ML IV ONE (02:41)
--- NOTE | 2017-09-29 03:20 | ED ---
Complex/Multi-Sys Presentation - HPI Summary HPI Summary: Pt is 87 y/o F BIBA to [facility] c/o severe nausea since yesterday night. She has been stick to her stomach and vomiting since yesterday night, but denies abdominal pain. Pt also denies diarrhea or fever. During the day today she felt fine and was able to eat, but at night she became ill again. Pt lives in [facility]. - History Of Current Complaint Chief Complaint: EDNauseaVomitDiarrh Time Seen by Provider: 09/29/17 02:37 Hx Obtained From: Patient Onset/Duration: Lasting Hours, Still Present Severity Currently: Severe Aggravating Factor(s): Nothing Alleviating Factor(s): Nothing Associated Signs And Symptoms: Positive: Nausea, Vomiting, Other - NEGATIVE: diarrhea, fever. Negative: Abdominal Pain - Allergies/Home Medications Allergies/Adverse Reactions: Allergies Allergy/AdvReac Type Severity Reaction Status Date / Time diazepam Allergy Intermediate Hives Verified 07/02/17 16:11 blue dye Allergy Unknown Unknown Verified 07/02/17 16:11 Reaction Details duloxetine Allergy Unknown Unknown Verified 07/02/17 16:11 Reaction Details pregabalin AdvReac Severe Joint Pain Verified 07/02/17 16:11 meperidine AdvReac Intermediate Nausea And Verified 07/02/17 16:11 Vomiting onabotulinumtoxinA AdvReac Intermediate Nausea And Verified 07/02/17 16:11 [From Botox] Vomiting oxycodone AdvReac Intermediate Nausea And Verified 07/02/17 16:11 Vomiting propoxyphene AdvReac Intermediate Nausea And Verified 07/02/17 16:11 [From Darvocet-N] Vomiting PMH/Surg Hx/FS Hx/Imm Hx Endocrine/Hematology History: Denies: Hx Anticoagulant Therapy, Hx Diabetes Cardiovascular History: Denies: Hx Auto Implanted Cardiovert Defib, Hx Hypertension Musculoskeletal History: Reports: Hx Arthritis, Hx Fibromyalgia, Other Musculoskeletal History - bilateral hip replacement, arm fracture Sensory History: Reports: Hx Contacts or Glasses - pt doesn't have glassess with her Denies: Hx Deafness, Hx Hearing Aid Opthamlomology History: Reports: Hx Contacts or Glasses - pt doesn't have glassess with her Neurological History: Reports: Hx Dementia, Hx Headaches, Other Neuro Impairments/Disorders - fibromyalgia, insomnia - Cancer History Cancer Type, 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 appendectomy. TKA. bilat [facility]. back surgery - Immunization History Date of Tetanus Vaccine: unk Date of Influenza Vaccine: unk Infectious Disease History: No Infectious Disease History: Denies: Traveled Outside the [place] in Last 30 Days - Family History Known Family History: Positive: Unknown - due to pt's dementia - Social History Alcohol Use: Rare Hx Substance Use: No Substance Use Type: Reports: None Hx Tobacco Use: No Smoking Status (MU): Never Smoked Tobacco Have You Smoked in the Last Year: No Review of Systems Negative: Fever Positive: Vomiting, Nausea. Negative: Abdominal Pain, Diarrhea All Other Systems Reviewed And Are Negative: Yes Physical Exam - Summary Physical Exam Summary: Appearance: Well-appearing, Well-nourished, lying in bed comfortably Skin: Warm, dry, no obvious rash Eyes: sclera anicteric, no conjunctival pallor ENT: mucous membranes moist, pharynx appears normal Neck: Supple, nontender Respiratory: Clear to auscultation, no signs of respiratory distress Cardiovascular: Normal S1, S2. No murmurs. Normal distal pulses in tibial and radial bilaterally. Abdomen: Soft, nontender, normal active bowel sounds present Musculoskeletal: Normal, Strength/ROM Intact Neurological: A&Ox3, awake and alert, mentation is normal, speech is fluent and appropriate Psychiatric: affect is normal, does not appear anxious or depressed Triage Information Reviewed: Yes Vital Signs On Initial Exam: Initial Vitals Temp Pulse Resp BP Pulse Ox 97.7 F 77 22 140/102 97 09/29/17 02:12 09/29/17 02:12 09/29/17 02:12 09/29/17 02:12 09/29/17 02:12 Vital Signs Reviewed: Yes Diagnostics - Vital Signs Vital Signs Temp Pulse Resp BP Pulse Ox 09/29/17 02:12 97.7 F 77 22 140/102 97 - Laboratory Result Diagrams: 09/29/17 03:17 09/29/17 03:17 Lab Statement: Any lab studies that have been ordered have been reviewed, and results considered in the medical decision making process. - EKG 02:58 Cardiac Rate: NL - 76 bpm EKG Rhythm: Sinus Rhythm Complex Multi-Symp Course/Dx Course Of Treatment: This is an elderly woman with some baseline dementia who presents tonight with nausea and vomiting. She has not had any abdominal pain nor any diarrhea. Her exam is quite benign with a soft abdomen and no tenderness. Laboratory studies are notable for moderate hyponatremia which she has had before. She was medicated with Zofran and given IV fluids, and at present feels much better. She denies any pain or nausea at this point and would like to go home. - Diagnoses Provider Diagnoses: Nausea and vomiting Discharge - Sign-Out/Discharge Documenting (check all that apply): Patient Departure - Discharge Plan Condition: Improved Disposition: HOME Prescriptions: Ondansetron [Zofran Odt] 8 mg PO Q6HR PRN #12 tab.rapdis PRN Reason: Nausea Patient Education Materials: Acute Nausea and Vomiting (ED) Referrals: Ca Gomez MD [Primary Care Provider] - - Billing Disposition and Condition Condition: IMPROVED Disposition: Home - Attestation Statements Document Initiated by Nereydaibe: Yes Documenting Scribe: Beka Garcia Provider For Whom Charlie is Documenting (Include Credential): Boris Adamson MD Scribe Attestation: Beka Sykes, scribed for Boris Adamson MD on 09/29/17 at 0601. Scribe Documentation Reviewed: Yes Provider Attestation: The documentation as recorded by the scribBeka gómez accurately reflects the service I personally performed and the decisions made by , Boris Adamson MD
[2017-09-29 03:28] LABS: ABS Basophils 0 10^3/ul (0-0.2); ABS Eosinophils 0 10^3/ul (0-0.6); ABS Lymphocytes 0.6 10^3/ul (1.0-4.8); ABS Monocytes 0.3 10^3/ul (0-0.8); ABS Neutrophils 7.2 10^3/ul (1.5-7.7); ABS Nucleated RBC 0 10^3/ul; Eosinophil % 0 % (0-6); Hematocrit 40 % (35-47); Hemoglobin 13.9 g/dl (12.0-16.0); Lymphocyte % 7.1 % (25-47); Mean Corpuscular HGB Conc 35 g/dl (31-36); Mean Corpuscular Hemoglobin 33 pg (27-31); Mean Corpuscular Volume 95 fL (80-97); Mean Platelet Volume 8.1 um3 (7.4-10.4); Nucleated Red Blood Cells % 0.1; Platelet Count 208 10^3/ul (150-450); Red Blood Count 4.19 10^6/ul (4.00-5.40); Red Cell Distribution Width 13 % (10.5-15); White Blood Count 8.1 10^3/ul (3.5-10.8)
[2017-09-29 03:51] LABS: EGFR Non-African American 86.6 (>60)
[2017-09-29 04:34] VITALS: BP 162/97
== END 2017-09-29 04:35 | disposition home or self-care (01) ==
LOC: ED 02:09
DX: R11.2 Nausea with vomiting, unspecified (principal); Z88.5 Allergy status to narcotic agent; Z88.8 Allergy status to other drugs, medicaments and biological substances; N39.0 Urinary tract infection, site not specified; Z90.710 Acquired absence of both cervix and uterus
CPT/HCPCS: 36415; 80053; 83605; 83690; 85025; 93005; 96360; 99283; A9270-GY

== ENCOUNTER 2017-09-29 17:54 | Emergency (ER) | payer MEDICARE, BC ==
[2017-09-29] MEDS ORDERED: NS 0.9% 1000 ML* 1,000 ML IV ONE (19:09)
--- NOTE | 2017-09-29 19:13 | ED ---
GI/ HPI - HPI Summary HPI Summary: This patient is an 87 year old F BIBA to [facility] accompanied by family with a chief complaint of nausea that began yesterday. The patient rates the pain 0/10 in severity. Symptoms aggravated by nothing. Symptoms alleviated by nothing. Patient reports decreased appetite. Patient denies diarrhea and abd pain. Pt was at [facility] earlier for these symptoms, and was diagnosed with nausea and vomiting. Per family, assisted living facility reports that the patient had been nauseous and dry heaving. - History of Current Complaint Chief Complaint: EDGeneral Time Seen by Provider: 09/29/17 19:01 Stated Complaint: N/V Hx Obtained From: Patient, Family/Hearing Aid Repair Technician Onset/Duration: Started Days Ago, Atraumatic, Still Present Timing: Constant Severity: Mild Current Severity: Mild Pain Intensity: 0 Location of Pain: None Associated Signs and Symptoms: Positive: Other: - Positive decreased appetite. Negative diarrhea and abd pain Aggravating Factor(s): Nothing Alleviating Factor(s): Nothing - Additional Pertinent History Primary Care Physician: LESV[facility] - Allergy/Home Medications Allergies/Adverse Reactions: Allergies Allergy/AdvReac Type Severity Reaction Status Date / Time diazepam Allergy Intermediate Hives Verified 09/29/17 18:05 blue dye Allergy Unknown Unknown Verified 09/29/17 18:05 Reaction Details duloxetine Allergy Unknown Unknown Verified 09/29/17 18:05 Reaction Details pregabalin AdvReac Severe Joint Pain Verified 09/29/17 18:05 meperidine AdvReac Intermediate Nausea And Verified 09/29/17 18:05 Vomiting onabotulinumtoxinA AdvReac Intermediate Nausea And Verified 09/29/17 18:05 [From Botox] Vomiting oxycodone AdvReac Intermediate Nausea And Verified 09/29/17 18:05 Vomiting propoxyphene AdvReac Intermediate Nausea And Verified 09/29/17 18:05 [From Darvocet-N] Vomiting Home Medications: Home Medications Lidocaine HCl [Aspercreme W/Lidocaine] 4 % TOPICAL Q8HR PRN 09/29/17 [History Confirmed 09/29/17] PMH/Surg Hx/FS Hx/Imm Hx Previously Healthy: No Endocrine/Hematology History: Denies: Hx Anticoagulant Therapy, Hx Diabetes Cardiovascular History: Denies: Hx Auto Implanted Cardiovert Defib, Hx Hypertension Musculoskeletal History: Reports: Hx Arthritis, Hx Fibromyalgia, Other Musculoskeletal History - bilateral hip replacement, arm fracture Sensory History: Reports: Hx Contacts or Glasses - pt doesn't have glassess with her Denies: Hx Deafness, Hx Hearing Aid Opthamlomology History: Reports: Hx Contacts or Glasses - pt doesn't have glassess with her Neurological History: Reports: Hx Dementia, Hx Headaches, Other Neuro Impairments/Disorders - fibromyalgia, insomnia - Cancer History Cancer Type, 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 appendectomy. TKA. bilat [facility]. back surgery - Immunization History Date of Tetanus Vaccine: unk Date of Influenza Vaccine: unk Infectious Disease History: No Infectious Disease History: Denies: Traveled Outside the [place] in Last 30 Days - Family History Known Family History: Positive: Unknown - due to pt's dementia - Social History Occupation: Retired Lives: Assisted Living Alcohol Use: Rare Hx Substance Use: No Substance Use Type: Reports: None Hx Tobacco Use: No Smoking Status (MU): Never Smoked Tobacco Have You Smoked in the Last Year: No Review of Systems Negative: Chills Positive: Nausea, Other - Positive decreased appetite. Negative: Abdominal Pain , Diarrhea All Other Systems Reviewed And Are Negative: Yes Physical Exam - Summary Physical Exam Summary: Appearance: Well-appearing, Well-nourished, lying in bed comfortably Skin: Warm, dry, no obvious rash Eyes: sclera anicteric, no conjunctival pallor ENT: mucous membranes moist, pharynx appears normal Neck: Supple, nontender Respiratory: Clear to auscultation, no signs of respiratory distress Cardiovascular: Normal S1, S2. No murmurs. Normal distal pulses in tibial and radial bilaterally. Abdomen: Soft, nontender, normal active bowel sounds present, not distended Musculoskeletal: Normal, Strength/ROM Intact Neurological: A&Ox3, awake and alert, mentation is normal, speech is fluent and appropriate Psychiatric: affect is normal, does not appear anxious or depressed Triage Information Reviewed: Yes Vital Signs On Initial Exam: Initial Vitals Temp Pulse Resp BP Pulse Ox 99.2 F 83 15 168/95 98 09/29/17 18:01 09/29/17 18:01 09/29/17 18:01 09/29/17 18:01 09/29/17 18:01 Vital Signs Reviewed: Yes Diagnostics - Vital Signs Vital Signs Temp Pulse Resp BP Pulse Ox 09/29/17 18:01 99.2 F 78 20 168/95 97 - Laboratory Result Diagrams: 09/29/17 19:28 09/29/17 19:28 Lab Statement: Any lab studies that have been ordered have been reviewed, and results considered in the medical decision making process. - Additional Comments Diagnostic Additional Comments: An EKG taken at 1944 reveals NSR at 79BPM, P waves occasional PACs and no ischemic changes. GIGU Course/Dx - Diagnoses Provider Diagnoses: Urinary tract infection Discharge - Sign-Out/Discharge Documenting (check all that apply): Patient Departure - Discharge Plan Condition: Good Disposition: HOME Prescriptions: Cephalexin CAP* [Keflex CAP*] 500 mg PO QID 10 Days #40 cap Patient Education Materials: Urinary Tract Infection in Women (ED) Referrals: Ca Gomez MD [Primary Care Provider] - - Billing Disposition and Condition Condition: GOOD Disposition: Home - Attestation Statements Document Initiated by Scribe: Yes Documenting Scribe: Asha Andres Provider For Whom Scribe is Documenting (Include Credential): Boris Adamson MD Scribe Attestation: Asha Sykes, scribed for Boris Adamson MD on 09/30/17 at 0419. Scribe Documentation Reviewed: Yes Provider Attestation: The documentation as recorded by the Asha kennedy accurately reflects the service I personally performed and the decisions made by me, Boris Adamson MD
[2017-09-29 19:35] LABS: ABS Basophils 0 10^3/ul (0-0.2); ABS Eosinophils 0 10^3/ul (0-0.6); ABS Lymphocytes 0.7 10^3/ul (1.0-4.8); ABS Monocytes 0.6 10^3/ul (0-0.8); ABS Neutrophils 7.1 10^3/ul (1.5-7.7); ABS Nucleated RBC 0 10^3/ul; Eosinophil % 0 % (0-6); Hematocrit 40 % (35-47); Hemoglobin 13.8 g/dl (12.0-16.0); Lymphocyte % 7.8 % (25-47); Mean Corpuscular HGB Conc 34 g/dl (31-36); Mean Corpuscular Hemoglobin 33 pg (27-31); Mean Corpuscular Volume 96 fL (80-97); Mean Platelet Volume 8.1 um3 (7.4-10.4); Nucleated Red Blood Cells % 0; Platelet Count 228 10^3/ul (150-450); Red Blood Count 4.19 10^6/ul (4.00-5.40); Red Cell Distribution Width 13 % (10.5-15); White Blood Count 8.4 10^3/ul (3.5-10.8)
[2017-09-29 19:57] LABS: EGFR Non-African American 85.1 (>60)
[2017-09-29 20:35] LABS: Urine Appearance Cloudy; Urine Blood Negative (Negative); Urine Color Yellow; Urine Ketones 1+ (Negative); Urine Protein 2+(100 mg/dL) (Negative); Urine Red Blood Cell 3+(>10/hpf) (Absent); Urine Specific Gravity 1.018 (1.010-1.030); Urine Urobilinogen Negative (Negative); Urine White Blood Cell 1+(6-10/hpf) (Absent)
[2017-09-29] MEDS ORDERED: Cephalexin CAP* 500 MG PO ONE (21:49)
[2017-09-29 23:01] VITALS: BP 131/85
== END 2017-09-29 23:01 | disposition home or self-care (01) ==
LOC: ED 17:54
DX: N39.0 Urinary tract infection, site not specified (principal); R11.2 Nausea with vomiting, unspecified; Z88.8 Allergy status to other drugs, medicaments and biological substances; Z88.5 Allergy status to narcotic agent; Z90.710 Acquired absence of both cervix and uterus
CPT/HCPCS: 36415; 80048; 81003; 81015; 83605; 85025; 87086; 93005; 96360; 96361; 99283; A9270-GY

== ENCOUNTER 2017-11-01 18:06 | Inpatient (IN) | payer MEDICARE, OTHER ==
[2017-11-01] MEDS ORDERED: NS 0.9% 1000 ML* 1,000 ML IV ONE (19:07)
[2017-11-01] MEDS ORDERED: Ondansetron INJ* 2 MG/ML VIAL IV ONE (19:07)
--- NOTE | 2017-11-01 19:37 | ED ---
Complex/Multi-Sys Presentation - HPI Summary HPI Summary: A 87 y/o female accompanied by her family JEANCARLOS presents to ED c/o nausea and vomiting. In the ED room, the patient has a pulse of 79 BPM, O2 saturation of 94 % and blood pressure of 197/127. As per triage, "pt woke up today with nausea and vomiting. pt denies chest pain, SOB, fevers/chills, diarrhea". According to the patient, she has been experiencing nausea and vomiting. She denies any chest pain, fevers, diarrhea, constipation or abdominal pain. She additionally denied any chills, but her family insisted that she has been asking for warm blankets. As per family, the symptoms may have started yesterday as she did not feel good and had no appetite. The patient has never experienced these kinds of symptoms previously. As per daughter, the patient was in the ED a couple weeks ago for the same symptoms. She was tested for UTI and was prescribed some medications, but her PCP took her off those medications and put her on new ones because she was still exhibiting stomach issues. The patient is not complaining of abdominal pain, but at the [facility] [place], the patient stated that she had abdominal pain earlier. The family is unsure because they do not live with her. Throughout the examination, the patient stated, "Lizbeth, I don't feel good, Lizbeth please". PMHx of uterine removal surgery. - History Of Current Complaint Chief Complaint: EDNauseaVomitDiarrh Time Seen by Provider: 11/01/17 18:51 Hx Obtained From: Patient Onset/Duration: Sudden Onset, Lasting Days, Still Present Timing: Constant Location: Negative Associated Signs And Symptoms: Positive: Nausea, Vomiting - Allergies/Home Medications Allergies/Adverse Reactions: Allergies Allergy/AdvReac Type Severity Reaction Status Date / Time diazepam Allergy Intermediate Hives Verified 11/01/17 19:21 blue dye Allergy Unknown Unknown Verified 11/01/17 19:21 Reaction Details duloxetine Allergy Unknown Unknown Verified 11/01/17 19:21 Reaction Details pregabalin AdvReac Severe Joint Pain Verified 11/01/17 19:21 meperidine AdvReac Intermediate Nausea And Verified 11/01/17 19:21 Vomiting onabotulinumtoxinA AdvReac Intermediate Nausea And Verified 11/01/17 19:21 [From Botox] Vomiting oxycodone AdvReac Intermediate Nausea And Verified 11/01/17 19:21 Vomiting propoxyphene AdvReac Intermediate Nausea And Verified 11/01/17 19:21 [From Jose R] Vomiting Home Medications: Home Medications GuaiFENesin DM* [Robitussin DM*] 10 ml PO Q8HR PRN 11/01/17 [History Confirmed 11/01/17] Multivit-Min/Iron/Folic/Lutein [Centrum Silver Women Tablet] 1 each PO DAILY [History Confirmed 11/01/17] raNITIdine HCl [Ranitidine HCl] 150 mg PO BID 11/01/17 [History Confirmed ] PMH/Surg Hx/FS Hx/Imm Hx Endocrine/Hematology History: Denies: Hx Anticoagulant Therapy, Hx Diabetes Cardiovascular History: Denies: Hx Auto Implanted Cardiovert Defib, Hx Hypertension Musculoskeletal History: Reports: Hx Arthritis, Hx Fibromyalgia, Other Musculoskeletal History - bilateral hip replacement, arm fracture Sensory History: Reports: Hx Contacts or Glasses - pt doesn't have glassess with her Denies: Hx Deafness, Hx Hearing Aid Opthamlomology History: Reports: Hx Contacts or Glasses - pt doesn't have glassess with her Neurological History: Reports: Hx Dementia, Hx Headaches, Other Neuro Impairments/Disorders - fibromyalgia, insomnia - Cancer History Cancer Type, 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 appendectomy. TKA. bilat YOANA. back surgery - Immunization History Date of Tetanus Vaccine: unk Date of Influenza Vaccine: unk Infectious Disease History: No Infectious Disease History: Denies: Traveled Outside the [place] in Last 30 Days - Family History Known Family History: Negative: Hypertension, Diabetes - Social History Alcohol Use: Rare Hx Substance Use: No Substance Use Type: Reports: None Hx Tobacco Use: No Smoking Status (MU): Never Smoked Tobacco Have You Smoked in the Last Year: No Review of Systems Negative: Fever, Chills Negative: Chest Pain Positive: Abdominal Pain, Vomiting, Nausea. Negative: Diarrhea All Other Systems Reviewed And Are Negative: Yes Physical Exam - Summary Physical Exam Summary: VITAL SIGNS: Reviewed. GENERAL: Patient is a ill-appearing female who is nauseous in the stretcher. Patient is not in any acute respiratory distress. HEAD AND FACE: Normocephalic and atraumatic. EYES: PERRLA, EOMI x 2, No injected conjunctiva. EARS: Hearing grossly intact. Ear canals and tympanic membranes are WNL. MOUTH: Oropharynx within normal limits. NECK: Supple, trachea is midline, no adenopathy, no JVD. CHEST: Symmetric, no tenderness at palpation LUNGS: Clear to auscultation bilaterally. No wheezing or crackles. CVS: RRR, S1 and S2 present, no murmurs or gallops appreciated. ABDOMEN: Soft, non-tender. Distended abdomen. Positive bowel sounds. No rebound no guarding, and no masses palpated. No abdominal bruit or pulsations. EXTREMITIES: FROM in all major joints, no edema, no cyanosis or clubbing. NEURO: Alert and oriented x 3. No acute neurological deficits. Speech is normal. SKIN: Dry and warm Triage Information Reviewed: Yes Vital Signs On Initial Exam: Initial Vitals Temp Pulse Resp BP Pulse Ox 96.7 F 74 14 195/105 96 11/01/17 18:14 11/01/17 18:14 11/01/17 18:14 11/01/17 18:14 11/01/17 18:14 Vital Signs Reviewed: Yes Diagnostics - Vital Signs Vital Signs Temp Pulse Resp BP Pulse Ox 11/01/17 19:16 198/98 11/01/17 19:12 76 14 202/114 98 11/01/17 19:00 82 15 98 11/01/17 18:48 78 19 197/127 98 11/01/17 18:19 78 21 194/105 98 11/01/17 18:14 96.7 F 74 14 195/105 96 - Laboratory Result Diagrams: 11/02/17 07:29 11/02/17 07:29 Lab Statement: Any lab studies that have been ordered have been reviewed, and results considered in the medical decision making process. - Radiology ABDOMEN XR Radiology Interpretation Completed By: ED Physician - Increased stool content. No fluid. Pending official report. - EKG 1935 Cardiac Rate: NL - 88 BPM EKG Rhythm: Sinus Rhythm EKG Interpretation: NO ST ELEVATIONS Complex Multi-Symp Course/Dx Assessment/Plan: This patient is an 87-year-old female who presents to the emergency department with chief complaint of having nausea and vomiting. The patient started her symptoms since yesterday and today had worsen. She denies any chest pain shortness of breath or palpitations. Patient denies any abdominal pain diarrhea constipation. She reports that a couple weeks ago she had the same symptoms for which the patient was given some anti nausea medication and she was found to have a UTI. However the primary care physician DC'd the antibiotics for the UTI and now the patient is having the same symptoms. Patient has past medical history significant for nausea and vomiting , sepsis secondary to UTI, acute renal failure, dementia, hyponatremia. Initially the patient was placed in a cardiac cath lab manager, the patient was given IV fluids, the patient was given Zofran and the symptoms did not improve therefore the patient was given Reglan. X-ray of the abdomen shows increased stool content but no air-fluid levels. Blood work without any significant abnormality except for sodium of 125 anion gap of 14, glucose 126, C-reactive protein of 16.4. BMP is 297. Urinalysis is negative for UTI. The symptoms the patient is severely constipated however because of the symptoms are not getting improvement decided to order an abdominopelvic CT to rule out obstruction or any intra-abdominal pathology. At this time the patient will be signed out to Dr. Strange at shift change to follow-up the test results of the abdominopelvic CT. However I also discussed my physical exam and findings with Dr. Fontana from the hospitalist services who will accept the patient for admission if the abdominal pelvic CT doesn't show any surgical pathology. At this time the patient is still nauseous without vomiting she is more comfortable. - Diagnoses Provider Diagnoses: Nausea and vomiting, Constipation Discharge - Sign-Out/Discharge Documenting (check all that apply): Sign-Out Patient Signing out patient TO: Boris Adamson - Discharge Plan Disposition: HOME - Billing Disposition and Condition Disposition: Home - Attestation Statements Document Initiated by Charlie: Yes Documenting Scribe: Raffi Oliveira Provider For Whom Charlie is Documenting (Include Credential): Kailash Crespo MD Scribe Attestation: Raffi Sykes, scribed for Kailash Crespo MD on 11/02/17 at 1122. Scribe Documentation Reviewed: Yes Provider Attestation: The documentation as recorded by the Raffi kennedy accurately reflects the service I personally performed and the decisions made by me, Kailash Crespo MD
[2017-11-01 19:51] LABS: ABS Basophils 0 10^3/ul (0-0.2); ABS Eosinophils 0 10^3/ul (0-0.6); ABS Lymphocytes 0.5 10^3/ul (1.0-4.8); ABS Monocytes 0.4 10^3/ul (0-0.8); ABS Neutrophils 6.2 10^3/ul (1.5-7.7); ABS Nucleated RBC 0 10^3/ul; Eosinophil % 0.5 % (0-6); Hematocrit 42 % (35-47); Hemoglobin 14.3 g/dl (12.0-16.0); Mean Corpuscular HGB Conc 34 g/dl (31-36); Mean Corpuscular Hemoglobin 33 pg (27-31); Mean Corpuscular Volume 96 fL (80-97); Mean Platelet Volume 7.8 um3 (7.4-10.4); Nucleated Red Blood Cells % 0.1; Platelet Count 233 10^3/ul (150-450); Red Blood Count 4.33 10^6/ul (4.00-5.40); Red Cell Distribution Width 13 % (10.5-15); White Blood Count 7.1 10^3/ul (3.5-10.8)
[2017-11-01 20:01] LABS: EGFR Non-African American 91.5 (>60)
[2017-11-01 20:56] LABS: Urine Appearance Clear; Urine Blood Negative (Negative); Urine Color Straw; Urine Ketones Trace (Negative); Urine Protein 2+(100 mg/dL) (Negative); Urine Red Blood Cell Trace(0-2/hpf) (Absent); Urine Urobilinogen Negative (Negative); Urine White Blood Cell Absent (Absent)
[2017-11-01] MEDS ORDERED: Iodixanol* (CONTRAST) 320 MG/ML 100 ML SDV IV ONE (21:12)
[2017-11-01] MEDS ORDERED: Metoclopramide IV* 5 MG/ML 2 ML VIAL IV ONE (22:19)
--- NOTE | 2017-11-01 22:29 | RAD ---
EXAM: CT Abdomen and Pelvis With Intravenous Contrast CLINICAL HISTORY: 87 years old, female; Signs and symptoms; Nausea and vomiting; Additional info: Vomiting and abdominal pain TECHNIQUE: Axial computed tomography images of the abdomen and pelvis with intravenous contrast. All CT scans at this facility use at least one of these dose optimization techniques: automated exposure control; mA and/or kV adjustment per patient size (includes targeted exams where dose is matched to clinical indication); or iterative reconstruction. Coronal and sagittal reformatted images were created and reviewed. CONTRAST: 74 mL of visipaque 320 administered intravenously. COMPARISON: DX HIP LT HIP LEFT 2 VIEWS AND PELVIS 11/27/2014 10:45 PM FINDINGS: Lung bases: Unremarkable. No mass. No consolidation. ABDOMEN: Liver: Unremarkable. No mass. Gallbladder and bile ducts: Distended gallbladder without stone. No ductal dilation. Pancreas: Unremarkable. No mass. No ductal dilation. Spleen: Unremarkable. No splenomegaly. Adrenals: Unremarkable. No mass. Kidneys and ureters: Left renal cyst measuring 3 cm. No followup necessary. No hydronephrosis. Stomach and bowel: Moderate amount of stool without obstruction. Moderate diverticulosis. Borderline wall thickening descending colon. Some of this is incomplete distention. There could be limited superimposed diverticulitis or colitis. PELVIS: Appendix: The appendix is not visualized. Bladder: Unremarkable. No mass. Reproductive: Unremarkable as visualized. ABDOMEN and PELVIS: Intraperitoneal space: Unremarkable. No free air. No significant fluid collection. Bones/joints: Bilateral hip prostheses. Lower lumbar fusion. Moderate skeletal degenerative change. Small hiatal hernia. No acute fracture. No dislocation. Soft tissues: Unremarkable. Vasculature: Moderate atherosclerosis. No abdominal aortic aneurysm. Lymph nodes: Unremarkable. No enlarged lymph nodes. Other findings: No other acute disease seen. As above. IMPRESSION: 1. Moderate amount of stool without obstruction. 2. Moderate diverticulosis. Borderline wall thickening descending colon. Some of this is incomplete distention. There could be limited superimposed diverticulitis or colitis. 3. No other acute disease seen. As above.
--- NOTE | 2017-11-01 23:14 | PN ---
Progress Note - Progress Note Date of Service: 11/01/17 Note: SIGN-OUT RECEIVED FROM DR. JACOB AT SHIFT CHANGE PENDING ABD/PEL CT RESULTS. This is scribe, Myles Longoria, documenting for attending Dr. Boris Adamson MD. I, Dr. Adamson, personally performed the services described in this documentation as scribed in my presence and it is both accurate and complete. At 2348: ED provider at bedside An 87 y/o F resents to ED with c/o n/v. DIAGNOSTICS: A/P CT with IV contrast as read by radiologist: IMPRESSION: 1. Moderate amount of stool without obstruction. 2. Moderate diverticulosis. Borderline wall thickening descending colon. Some of this is incomplete distention. There could be limited superimposed diverticulitis or colitis. 3. No other acute disease seen. As above. Ed provider has reviewed this report. CONSULT AT 2346: Dr. Fontana, hospitalist Will admit pt. <Myles Longoria - Last Filed: 11/02/17 06:31> - Progress Note Note: Diagnosis: Nausea and vomiting Condition: Fair Disposition: Admit to [facility] [place] <Boris Adamson - Last Filed: 11/02/17 06:38>
--- NOTE | 2017-11-01 23:25 | HP ---
H&P (Free Text) History and Physical: PCP: Veronica Gomez MD Date/Time: 11/01/2017 2300 CC: nausea HPI: Mrs Jones is an 87YO female HX dementia, fibromyalgia, uterine CA, & RA who presents to [facility] for the 3rd time over the last 72hours from [facility] with complaint of malaise & nausea. She is an exceedingly poor historian repetitively saying, "I don't feel good. That's all I can say." She does not recall her last bowel movement or flatus. Neither does she recall if she has been vomiting, had F/C, sweats, chest pain, SOB, diarrhea, B/U/F of urine or other issues. She cannot state when this started or if there are any exacerbating or alleviating factors. As such, much of this information is supplemented from the available medical record. PMedHx dementia uterine CA rheumatoid arthritis peripheral neuropathy GERD anxiety depression fibromyalgia insomnia constipation Ambulatory Orders Docusate CAP* [Colace Cap*] 100 mg PO BID 11/01/14 Hydroxychloroquine TAB* [Plaquenil TAB*] 200 mg PO BID 11/01/14 traMADol TAB* [Ultram*] 50 mg PO BEDTIME 11/01/14 traZODone TAB* [Desyrel TAB*] 100 mg PO BEDTIME PRN 11/01/14 Gabapentin CAP(*) [Neurontin 100 mg CAP(*)] 200 mg PO TID 12/08/14 traMADol TAB* [Ultram*] 50 mg PO Q6HR PRN 12/08/14 Dextran 70/Hypromellose [Genteal Tears 0.1%-0.3% Drop] 2 drop BOTH EYES BID PRN 12/17/16 Polyethylene Glycol 3350* [Miralax*] 17 gm PO QAM 12/17/16 Sertraline* [Zoloft*] 100 mg PO BEDTIME 12/17/16 Acetaminophen TAB* [Tylenol TAB*] 650 mg PO Q4H PRN MDD 2600 mg 07/02/17 Acetaminophen TAB* [Tylenol TAB*] 650 mg PO TID 07/02/17 Calcium Carb/Mag Hydrox/Simeth [Antacid Multi-Sym Tab Chew] 1 chw PO TID PRN Cholecalciferol CAP/TAB(NF) [Vitamin D3 CAP/TAB (NF)] 50,000 unit PO MONTHLY Hydrocortisone 2.5% CREAM(NF) 1 applic TOPICAL DAILY PRN 07/02/17 Ondansetron TAB* [Zofran 4 MG Tab*] 4 mg PO Q6H PRN 07/02/17 Oxymetazoline 0.05% NASAL SPR* [Afrin 0.05% NASAL SPRAY*] 2 spray BOTH NARES Q4HR PRN 07/02/17 Senna TAB* [Senokot TAB*] 1 tab PO BEDTIME 07/02/17 Vit C/E/Zn/Coppr/Lutein/Zeaxan [Preservision Areds 2 Softgel] 1 cap PO BID 07/02 Lidocaine HCl [Aspercreme W/Lidocaine] 4 % TOPICAL Q8HR PRN 09/29/17 GuaiFENesin DM* [Robitussin DM*] 10 ml PO Q8HR PRN 11/01/17 Multivit-Min/Iron/Folic/Lutein [Centrum Silver Women Tablet] 1 each PO DAILY raNITIdine HCl [Ranitidine HCl] 150 mg PO BID 11/01/17 Allergies diazepam Allergy (Intermediate, Verified 11/01/17 19:21) Hives blue dye Allergy (Unknown, Verified 11/01/17 19:21) Unknown Reaction Details duloxetine Allergy (Unknown, Verified 11/01/17 19:21) Unknown Reaction Details pregabalin Adverse Reaction (Severe, Verified 11/01/17 19:21) Joint Pain meperidine Adverse Reaction (Intermediate, Verified 11/01/17 19:21) Nausea And Vomiting onabotulinumtoxinA [From Botox] Adverse Reaction (Intermediate, Verified 19:21) Nausea And Vomiting oxycodone Adverse Reaction (Intermediate, Verified 11/01/17 19:21) Nausea And Vomiting propoxyphene [From Darvocet-N] Adverse Reaction (Intermediate, Verified 19:21) Nausea And Vomiting PSurgHx L YOANA R TKA hysterectomy appendectomy SocHx: no tobacco, alcohol, or recreational drugs; resides at [place]; DNR code status FamHx: unobtainable ROS: as above, otherwise reviewed and all were negative vitals: Vital Signs Temp 35.9 C 11/01/17 18:14 Pulse 78 11/01/17 22:00 Resp 18 11/01/17 23:00 BP 174/96 11/01/17 21:52 Pulse Ox 94 11/01/17 22:00 Intake & Output 10/31/17 11/01/17 11/01/17 23:59 11:59 23:59 Intake Total 1000 Balance 1000 Weight 58.967 kg Intake: IV Fluids 1000 Constitutional: NAD, normally developed, well-nourished elderly white female HEENM: atraumatic; sclera/conjunctiva: anicteric/clear; hearing: clinically intact; oropharynx: clear, mucosa tacky Neck: soft tissue: no nuchal rigidity; thyroid: non-tender Pulmonary: clear to auscultation bilaterally, good aeration, no accessory muscle use CV: RR/RR, normal S1S2, no carotid bruit, no jugular venous distention, 2+ B DP/ 1+ B PT, no edema Abdominal: soft, non-distended, non-tender, no rebound/guarding/rigidity, mildly hyperactive bowel sounds, no hepatosplenomegaly or masses, no costovertebral angle tenderness Musculoskeletal: general: grossly intact, non-tender Integumental: normal appearance and texture of exposed skin Psychiatric orientation: AA&O to PP, not situation affect: impatient mood: cooperative eye contact: poor content: unreliable memory: impaired responses: timely insight: poor Testing: Lab Results 11/01/17 11/01/17 11/01/17 Range/Units 19:35 19:35 19:35 WBC 7.1 (3.5-10.8) 10^3/ul RBC 4.33 (4.00-5.40) 10^6/ul Hgb 14.3 (12.0-16.0) g/dl Hct 42 (35-47) % MCV 96 (80-97) fL MCH 33 H (27-31) pg MCHC 34 (31-36) g/dl RDW 13 (10.5-15) % Plt Count 233 (150-450) 10^3/ul MPV 7.8 (7.4-10.4) um3 Neut % (Auto) 87.1 H (38-83) % Lymph % (Auto) 7.0 L (25-47) % [place] % (Auto) 4.9 (0-7) % Eos % (Auto) 0.5 (0-6) % Baso % (Auto) 0.5 (0-2) % Absolute Neuts (auto) 6.2 (1.5-7.7) 10^3/ul Absolute Lymphs (auto) 0.5 L (1.0-4.8) 10^3/ul Absolute Monos (auto) 0.4 (0-0.8) 10^3/ul Absolute Eos (auto) 0 (0-0.6) 10^3/ul Absolute Basos (auto) 0 (0-0.2) 10^3/ul Absolute Nucleated RBC 0 10^3/ul Nucleated RBC % 0.1 APTT (26.0-36.3) seconds Sodium 125 L (135-145) mmol/L Potassium 3.7 (3.5-5.0) mmol/L Chloride 88 L (101-111) mmol/L Carbon Dioxide 23 (22-32) mmol/L Anion Gap 14 H (2-11) mmol/L BUN 16 (6-24) mg/dL Creatinine 0.62 (0.51-0.95) mg/dL Est GFR ( Amer) 110.7 (>60) Est GFR (Non-Af Amer) 91.5 (>60) BUN/Creatinine Ratio 25.8 H (8-20) Glucose 126 H (70-100) mg/dL Lactic Acid 1.1 (0.5-2.0) mmol/L Calcium 9.3 (8.6-10.3) mg/dL Magnesium 1.9 (1.9-2.7) mg/dL Total Bilirubin 0.60 (0.2-1.0) mg/dL AST 22 (13-39) U/L ALT 14 (7-52) U/L Alkaline Phosphatase 89 (34-104) U/L Ammonia (16-53) mcmol/L Troponin I 0.00 (<0.04) ng/mL C-Reactive Protein 16.41 H (<8.01) mg/L B-Natriuretic Peptide ( - 100) pg/mL Total Protein 7.6 (6.4-8.9) g/dL Albumin 4.6 (3.2-5.2) g/dL Globulin 3.0 (2-4) g/dL Albumin/Globulin Ratio 1.5 (1-3) Amylase 69 (29-103) U/L Lipase 15 (11.0-82.0) U/L Urine Color Urine Appearance Urine pH (5-9) Ur Specific [place] (1.010-1.030) Urine Protein (Negative) Urine Ketones (Negative) Urine Blood (Negative) Urine Nitrate (Negative) Urine Bilirubin (Negative) Urine Urobilinogen (Negative) Ur Leukocyte Esterase (Negative) Urine WBC (Auto) (Absent) Urine RBC (Auto) (Absent) Urine Bacteria (Absent) Urine Glucose (Negative) Urine Ascorbic Acid (Negative) 11/01/17 11/01/17 11/01/17 Range/Units 19:35 19:35 20:47 WBC (3.5-10.8) 10^3/ul RBC (4.00-5.40) 10^6/ul Hgb (12.0-16.0) g/dl Hct (35-47) % MCV (80-97) fL MCH (27-31) pg MCHC (31-36) g/dl RDW (10.5-15) % Plt Count (150-450) 10^3/ul MPV (7.4-10.4) um3 Neut % (Auto) (38-83) % Lymph % (Auto) (25-47) % [place] % (Auto) (0-7) % Eos % (Auto) (0-6) % Baso % (Auto) (0-2) % Absolute Neuts (auto) (1.5-7.7) 10^3/ul Absolute Lymphs (auto) (1.0-4.8) 10^3/ul Absolute Monos (auto) (0-0.8) 10^3/ul Absolute Eos (auto) (0-0.6) 10^3/ul Absolute Basos (auto) (0-0.2) 10^3/ul Absolute Nucleated RBC 10^3/ul Nucleated RBC % APTT 35.2 (26.0-36.3) seconds Sodium (135-145) mmol/L Potassium (3.5-5.0) mmol/L Chloride (101-111) mmol/L Carbon Dioxide (22-32) mmol/L Anion Gap (2-11) mmol/L BUN (6-24) mg/dL Creatinine (0.51-0.95) mg/dL Est GFR ( Amer) (>60) Est GFR (Non-Af Amer) (>60) BUN/Creatinine Ratio (8-20) Glucose (70-100) mg/dL Lactic Acid (0.5-2.0) mmol/L Calcium (8.6-10.3) mg/dL Magnesium (1.9-2.7) mg/dL Total Bilirubin (0.2-1.0) mg/dL AST (13-39) U/L ALT (7-52) U/L Alkaline Phosphatase (34-104) U/L Ammonia 60 H (16-53) mcmol/L Troponin I (<0.04) ng/mL C-Reactive Protein (<8.01) mg/L B-Natriuretic Peptide 297 H ( - 100) pg/mL Total Protein (6.4-8.9) g/dL Albumin (3.2-5.2) g/dL Globulin (2-4) g/dL Albumin/Globulin Ratio (1-3) Amylase (29-103) U/L Lipase (11.0-82.0) U/L Urine Color Straw Urine Appearance Clear Urine pH 7.0 (5-9) Ur Specific [place] 1.010 (1.010-1.030) Urine Protein 2+(100 mg/dl) A (Negative) Urine Ketones Trace A (Negative) Urine Blood Negative (Negative) Urine Nitrate Negative (Negative) Urine Bilirubin Negative (Negative) Urine Urobilinogen Negative (Negative) Ur Leukocyte Esterase Negative (Negative) Urine WBC (Auto) Absent (Absent) Urine RBC (Auto) Trace(0-2/hpf) (Absent) Urine Bacteria Absent (Absent) Urine Glucose Negative (Negative) Urine Ascorbic Acid * A (Negative) ECG, personally reviewed: NSR rate 88, no ischemia XRY abd, personally reviewed: non-specific bowel gas pattern CT abd/pel W, personally reviewed: IMPRESSION: 1. Moderate amount of stool without obstruction. 2. Moderate diverticulosis. Borderline wall thickening descending colon. Some of this is incomplete distention. There could be limited super- imposed diverticulitis or colitis. 3. No other acute disease seen. As above. Impression: 87F HX dementia, fibromyalgia, uterine CA, & RA presenting with malaise and intractable N/V DIAGNOSIS & PLAN Primary malaise and intractable N/V : IVFs : anti-emetics : no abdominal pain on exam to support diverticulitis, trend WBC/temp curves : supportive care hypoNatremia, suspect hypovolemic : IVFs, trend constipation : continue docusate at increased dose of 200mg BID : continue polyethylene glycol & senna : MOM 30cc PO Q4H x2 doses Secondary dementia : no acute issues : PCP to consider donepezil rheumatoid arthritis : continue hydroxychloroquine peripheral neuropathy : continue gabapentin GERD : continue ranitidine anxiety/depression : continue sertraline insomnia : continue trazodone Admission Rational: observation for malaise & N/V DVTp: heparin SQ Code Status: DNR HCP: daughter, Lizbeth Barba
[2017-11-01] MEDS ORDERED: Ondansetron ODT TAB* 4 MG PO PRN (23:31)
[2017-11-01] MEDS ORDERED: PROCHLORPERAZINE INJ 5 MG/ML 2 ML VIAL IV PRN (23:31)
[2017-11-01] MEDS ORDERED: Melatonin 3 MG TAB PO PRN (23:31)
[2017-11-01] MEDS ORDERED: NS 0.9% 1000 ML* 1,000 ML IV SCH (23:45)
[2017-11-02] MEDS: Magnesium Hydroxide LIQ* 30 ML UDC PO SCH ×2 (02:55→05:36)
[2017-11-02] MEDS: Heparin VIAL(*) 5000 UNITS/ML VIAL (FIVE THOUSAND) SUBCUT SCH ×3 (05:39→21:36)
[2017-11-02] MEDS: Omeprazole CAP* 20 MG PO SCH (05:44)
[2017-11-02] MEDS: Ondansetron INJ* 2 MG/ML VIAL IV PRN ×2 (06:29→14:52)
[2017-11-02 07:40] LABS: Hematocrit 41 % (35-47); Hemoglobin 14.2 g/dl (12.0-16.0); Mean Corpuscular HGB Conc 35 g/dl (31-36); Mean Corpuscular Hemoglobin 33 pg (27-31); Mean Corpuscular Volume 95 fL (80-97); Mean Platelet Volume 7.8 um3 (7.4-10.4); Platelet Count 259 10^3/ul (150-450); Red Blood Count 4.31 10^6/ul (4.00-5.40); Red Cell Distribution Width 13 % (10.5-15); White Blood Count 8.4 10^3/ul (3.5-10.8)
[2017-11-02] MEDS ORDERED: NS 0.9% 1000 ML* 1,000 ML IV SCH (07:46)
[2017-11-02] MEDS ORDERED: traZODone TAB* 100 MG PO PRN (07:48)
[2017-11-02] MEDS ORDERED: traMADol TAB* 50 MG PO PRN (07:48)
--- NOTE | 2017-11-02 07:57 | PN ---
Subjective Date of Service: 11/02/17 Interval History: Nausea overnight confirmed by RN. Unclear how much emesis s/p admission This AM still complaining of "I don't feel well" which she further identifies as "sick to my stomach" Denies pain, no STEVENS, blurry vision, SOB, +anorexia Objective Active Medications: Acetaminophen (Tylenol Tab*) 650 mg PO Q6H PRN PRN Reason: FEVER/PAIN Docusate Sodium (Colace Cap*) 200 mg PO BID [facility] Gabapentin (Neurontin Cap(*)) 200 mg PO TID [facility] Heparin Sodium (Porcine) (Heparin Vial(*)) 5,000 units SUBCUT Q8HR [facility] Last Admin: 11/02/17 05:39 Dose: 5,000 units Hydroxychloroquine Sulfate (Plaquenil Tab*) 200 mg PO BID [facility] Sodium Chloride (Ns 0.9% 1000 Ml*) 1,000 mls @ 75 mls/hr IV PER RATE [facility] Stop: 11/02/17 21:05 Melatonin (Melatonin) 3 mg PO BEDTIME PRN; Protocol PRN Reason: Sleep Omeprazole (Prilosec Cap*) 20 mg PO DAILY@0600 [facility] Last Admin: 11/02/17 05:44 Dose: Not Given Ondansetron HCl (Zofran Inj*) 4 mg IV Q4H PRN PRN Reason: n/v Last Admin: 11/02/17 06:29 Dose: 4 mg Oxymetazoline HCl (Afrin 0.05% Nasal [place]*) 2 spray BOTH NARES Q4HR PRN PRN Reason: CONGESTION Polyethylene Glycol/Electrolytes (Miralax*) 17 gm PO DAILY [facility] Prochlorperazine Edisylate (Compazine Inj*) 10 mg IV Q6H PRN PRN Reason: NAUSEA Last Admin: 11/02/17 01:15 Dose: 10 mg Senna (Senokot Tab*) 1 tab PO BEDTIME [facility] Sertraline HCl (Zoloft*) 100 mg PO BEDTIME [facility] Simethicone (Mylicon Tab*) 80 mg PO AC [facility] Tramadol HCl (Ultram*) 50 mg PO Q6HR PRN PRN Reason: PAIN Tramadol HCl (Ultram*) 50 mg PO BEDTIME [facility] Trazodone HCl (Desyrel Tab*) 100 mg PO BEDTIME PRN PRN Reason: INSOMNIA Vital Signs - 8 hr 11/02/17 11/02/17 11/02/17 00:00 00:03 00:05 Temperature 97.3 F Pulse Rate 83 Respiratory 21 21 21 Rate Blood Pressure 167/78 (mmHg) O2 Sat by Pulse 95 Oximetry 11/02/17 11/02/17 11/02/17 00:38 00:55 04:04 Temperature 97.1 F 97.3 F 97.5 F Pulse Rate 90 80 90 Respiratory 21 20 16 Rate Blood Pressure 174/96 167/78 157/89 (mmHg) O2 Sat by Pulse 98 95 95 Oximetry Oxygen Devices in Use Now: None Appearance: sitting up in bed, NAD Eyes: No Scleral Icterus, PERRLA Ears/Nose/Mouth/Throat: Clear Oropharnyx, Mucous Membranes Moist Neck: NL Appearance and Movements; NL JVP Respiratory: Symmetrical Chest Expansion and Respiratory Effort, Clear to Auscultation Cardiovascular: RRR, - - 2/6 YORDY loudest RUSB Abdominal: NL Sounds; No Tenderness; No Distention, No Hepatosplenomegaly Lymphatic: No Cervical Adenopathy, No Axillary Adenopathy Extremities: No Edema Skin: No Rash or Ulcers Neurological: - - AOx2 to self and year, thinks she is [facility] but when asked again noted she is at the hospital Result Diagrams: 11/02/17 07:29 11/01/17 19:35 Microbiology and Other Data: Microbiology 11/02/17 03:00 Nasal Screen MRSA (PCR) - Final Nasal Mrsa Not Detected Assess/Plan/Problems-Billing Assessment: 87 yo F h/o dementia, RA, GERD, anxiety/depression, constipation recurrent N/V at least since June 2017 returning with N/V - Patient Problems (1) Nausea and vomiting Comment: Presented in June with the same which improved with correction of her sodium and careful advancement of diet in less than <24 hrs. Back to ED in September again with N/V. Given keflex for presumptive UTI and discharged but ucx ultimately with no growth. CT now with moderate stool and "borderline distention of descending colon" Pain free arguing against colitis/diverticulitis I suspect constipation contributing Advance diet slowly, NS at 75 cc, miralaz in addition to colace, senna and ambulation Antiemetics for symptamatic relief Await urine culture, no abx at this time If resolves plan on discharge with more aggresive daily bowel regimen (pt cannot say when last BM was) (2) Depression Comment: zoloft (3) Rheumatoid arthritis Comment: plaquenil (4) Hyponatremia Comment: In 2014 and again in 09/2017 Received >1 l NS in ED Check Na. Suspect dehydration/Emesis Status and Disposition: continued therapy
--- NOTE | 2017-11-02 08:03 | RAD ---
INDICATION: Vomiting COMPARISON: None TECHNIQUE: Supine and upright views of the abdomen were obtained. FINDINGS: There is gas and stool overlying the entire length of the colon. There is a large amount of stool overlying the cecum. The bowel is not pathologically dilated. There is no evidence of free intraperitoneal air. Lower lumbar orthopedic hardware is noted. IMPRESSION: In the correct clinical setting radiographic findings could be compatible with constipation without pathologic dilatation of the bowel or evidence of free intraperitoneal air. R0
[2017-11-02] MEDS: Gabapentin CAP(*) 100 MG PO SCH ×3 (09:35→20:50)
[2017-11-02] MEDS: Docusate CAP* 100 MG PO SCH ×2 (09:35→20:50)
[2017-11-02] MEDS: Hydroxychloroquine TAB* 200 MG PO SCH ×2 (09:39→20:51)
[2017-11-02] MEDS: Polyethylene Glycol 3350* 17 GM PACKET PO SCH (09:40)
[2017-11-02] MEDS: Simethicone TAB* 80 MG TAB.CHEW PO SCH ×2 (11:21→17:24)
[2017-11-02] MEDS: Acetaminophen TAB* 325 MG PO PRN (11:23)
[2017-11-02] MEDS: Oxymetazoline 0.05% NASAL SPR* 15 ML BTL BOTH NARES PRN ×2 (14:52→20:49)
[2017-11-02 15:11] LABS: EGFR Non-African American 82.2 (>60)
[2017-11-02] MEDS: Senna TAB PO SCH (20:50)
[2017-11-02] MEDS: Sertraline* 100 MG TAB PO SCH (20:50)
[2017-11-02] MEDS: traMADol TAB* 50 MG PO SCH (20:50)
[2017-11-03] MEDS: Acetaminophen TAB* 325 MG PO PRN ×3 (03:49→23:36)
[2017-11-03] MEDS: Heparin VIAL(*) 5000 UNITS/ML VIAL (FIVE THOUSAND) SUBCUT SCH ×3 (06:01→21:32)
[2017-11-03] MEDS: Omeprazole CAP* 20 MG PO SCH (06:02)
[2017-11-03 09:24] LABS: EGFR Non-African American 79.5 (>60)
[2017-11-03] MEDS: Hydroxychloroquine TAB* 200 MG PO SCH ×2 (10:21→20:46)
[2017-11-03] MEDS: Simethicone TAB* 80 MG TAB.CHEW PO SCH ×4 (10:21→16:59)
[2017-11-03] MEDS: Gabapentin CAP(*) 100 MG PO SCH ×3 (10:21→20:42)
[2017-11-03] MEDS: Polyethylene Glycol 3350* 17 GM PACKET PO SCH (10:21)
[2017-11-03] MEDS: Docusate CAP* 100 MG PO SCH ×2 (10:22→20:41)
[2017-11-03] MEDS ORDERED: NS 0.9% 1000 ML* 1,000 ML IV SCH (11:30)
--- NOTE | 2017-11-03 11:47 | PN ---
Subjective Date of Service: 11/03/17 Interval History: No additional need for antiemetics BM recorded Tolerating food, advanced to unrestricted Objective Active Medications: Acetaminophen (Tylenol Tab*) 650 mg PO Q6H PRN PRN Reason: FEVER/PAIN Last Admin: 11/03/17 10:20 Dose: 650 mg Docusate Sodium (Colace Cap*) [address] [facility] Last Admin: 11/03/17 10:22 Dose: 200 mg Gabapentin (Neurontin Cap(*)) [address] [facility] Last Admin: 11/03/17 10:21 Dose: 200 mg Heparin Sodium (Porcine) (Heparin Vial(*)) 5,[address] [facility] Last Admin: 11/03/17 06:01 Dose: 5,000 units Hydroxychloroquine Sulfate (Plaquenil Tab*) [address] [facility] Last Admin: 11/03/17 10:21 Dose: 200 mg Sodium Chloride (Ns 0.9% 1000 Ml*) 1,000 mls @ 100 mls/hr IV PER RATE [facility] Stop: 11/03/17 21:29 Melatonin (Melatonin) 3 mg PO BEDTIME PRN; Protocol PRN Reason: Sleep Omeprazole (Prilosec Cap*) 20 mg PO DAILY@0600 [facility] Last Admin: 11/03/17 06:02 Dose: Not Given Ondansetron HCl (Zofran Inj*) 4 mg IV Q4H PRN PRN Reason: n/v Last Admin: 11/02/17 14:52 Dose: 4 mg Oxymetazoline HCl (Afrin 0.05% Nasal [place]*) 2 spray BOTH NARES Q4HR PRN PRN Reason: CONGESTION Last Admin: 11/02/17 20:49 Dose: 2 spray Polyethylene Glycol/Electrolytes (Miralax*) [address] [facility] Last Admin: 11/03/17 10:21 Dose: 17 gm Prochlorperazine Edisylate (Compazine Inj*) 10 mg IV Q6H PRN PRN Reason: NAUSEA Last Admin: 11/02/17 01:15 Dose: 10 mg Senna (Senokot Tab*) [address] [facility] Last Admin: 11/02/17 20:50 Dose: 1 tab Sertraline HCl (Zoloft*) [address] [facility] Last Admin: 11/02/17 20:50 Dose: 100 mg Simethicone (Mylicon Tab*) 80 mg PO AC [facility] Last Admin: 11/03/17 10:23 Dose: Not Given Tramadol HCl (Ultram*) 50 mg PO Q6HR PRN PRN Reason: PAIN Tramadol HCl (Ultram*) 50 mg PO BEDTIME [facility] Last Admin: 11/02/17 20:50 Dose: 50 mg Trazodone HCl (Desyrel Tab*) 100 mg PO BEDTIME PRN PRN Reason: INSOMNIA Vital Signs - 8 hr 11/03/17 11/03/17 11/03/17 04:32 07:57 10:21 Temperature 97.9 F 97.8 F Pulse Rate 78 82 Respiratory 15 18 16 Rate Blood Pressure 145/80 139/69 (mmHg) O2 Sat by Pulse 96 95 Oximetry 11/03/17 11:15 Temperature Pulse Rate Respiratory 18 Rate Blood Pressure (mmHg) O2 Sat by Pulse Oximetry Oxygen Devices in Use Now: None Appearance: NAD Eyes: No Scleral Icterus Ears/Nose/Mouth/Throat: NL Teeth, Lips, Gums, Clear Oropharnyx Neck: NL Appearance and Movements; NL JVP, Trachea Midline Respiratory: Symmetrical Chest Expansion and Respiratory Effort, Clear to Auscultation Cardiovascular: RRR Abdominal: NL Sounds; No Tenderness; No Distention, No Hepatosplenomegaly Lymphatic: No Cervical Adenopathy Extremities: No Edema Skin: No Rash or Ulcers Neurological: Alert and Oriented x 3, - - oriented but cannot remember when she ate, when she vomited last, how often she has BMs Result Diagrams: 11/02/17 07:29 11/03/17 08:51 Microbiology and Other Data: Microbiology 11/02/17 03:00 Nasal Screen MRSA (PCR) - Final Nasal Mrsa Not Detected Assess/Plan/Problems-Billing Assessment: 87 yo F h/o dementia, RA, GERD, anxiety/depression, constipation recurrent N/V at least since June 2017 returning with N/V - Patient Problems (1) Nausea and vomiting Comment: Presented in June with the same which improved with correction of her sodium and careful advancement of diet in less than <24 hrs. Back to ED in September again with N/V. Given keflex for presumptive UTI and discharged but ucx ultimately with no growth. CT now with moderate stool and "borderline distention of descending colon" Pain free arguing against colitis/diverticulitis I suspected constipation contributing and she has improved with a BM and sodium correction again. Continue bowel regimen Antiemetics for symptamatic relief if needed If resolves plan on discharge with more aggresive daily bowel regimen (pt cannot say when last BM was) (2) Depression Comment: zoloft (3) Rheumatoid arthritis Comment: plaquenil (4) Hyponatremia Comment: In 2014 and again in 09/2017 Received >1 l NS in ED Sodium better this AM but not corrected Additional NS at 100cc for 1 L then check in AM Suspect dehydration/Emesis Status and Disposition: continued therapy for hyponatremia. Home when corrected or stable
[2017-11-03] MEDS: Ondansetron INJ* 2 MG/ML VIAL IV PRN (13:39)
[2017-11-03] MEDS: Sertraline* 100 MG TAB PO SCH (20:41)
[2017-11-03] MEDS: Senna TAB PO SCH (20:41)
[2017-11-03] MEDS: traMADol TAB* 50 MG PO SCH (20:42)
[2017-11-04] MEDS: Heparin VIAL(*) 5000 UNITS/ML VIAL (FIVE THOUSAND) SUBCUT SCH ×2 (05:59→14:53)
[2017-11-04] MEDS: Omeprazole CAP* 20 MG PO SCH (06:00)
[2017-11-04 07:46] LABS: EGFR Non-African American 80.9 (>60)
[2017-11-04] MEDS: Simethicone TAB* 80 MG TAB.CHEW PO SCH ×2 (08:17→11:55)
[2017-11-04] MEDS: Gabapentin CAP(*) 100 MG PO SCH ×2 (10:21→14:53)
[2017-11-04] MEDS: Polyethylene Glycol 3350* 17 GM PACKET PO SCH (10:21)
[2017-11-04] MEDS: Docusate CAP* 100 MG PO SCH (10:23)
[2017-11-04] MEDS: Hydroxychloroquine TAB* 200 MG PO SCH (10:23)
[2017-11-04 13:21] VITALS: BP 134/75
--- NOTE | 2017-11-05 10:27 | DS ---
Cc: Dr. Ca Gomez.* DISCHARGE SUMMARY: DATE OF ADMISSION: 11/01/17 DATE OF DISCHARGE: 11/04/17 PRIMARY CARE PROVIDER: Dr. Ca Gomez. PRIMARY DIAGNOSES: 1. Intractable nausea and vomiting. 2. Hyponatremia. SECONDARY DIAGNOSES: Include: 1. Dementia. 2. History of rheumatoid arthritis. 3. Gastroesophageal reflux disease. 4. Anxiety. 5. Depression. 6. Fibromyalgia. 7. Constipation. MEDICATIONS ON DISCHARGE: Unchanged from admission except for the addition of Bisacodyl suppository as needed for constipation and an increase in Senna from 1 to 2 tabs every evening. Rest of the medications include: 1. Guaifenesin 10 mL every 8 hours as needed. 2. Afrin spray 2 puffs every 4 hours as needed. 3. Lidocaine topical every 8 hours as needed. 4. Hydrocortisone 2.5% topically as needed. 5. Antacid, multivitamin with simethicone tab chew 1 tab 3 times a day as needed. 6. Ondansetron 4 mg every 6 hours as needed. 7. Tramadol 50 mg every 6 hours as needed. 8. Gabapentin 200 mg 3 times a day. 9. Acetaminophen 650 mg every 4 hours as needed. 10. Ranitidine 150 mg twice daily. 11. PreserVision 1 cap twice daily. 12. Hydroxychloroquine 200 mg twice daily. 13. Docusate 100 mg twice daily. 14. GenTeal Tear drops 2 drops both eyes twice daily as needed. 15. Trazodone 100 mg at bedtime as needed. 16. Vitamin D tabs 2000 units monthly. 17. Tramadol 50 mg at bedtime. 18. Zoloft 100 mg at bedtime. 19. Senna 2 tabs at bedtime increased from 1 tab. 20. MiraLAX 17 g daily. 21. Multivitamin with iron, folic acid and Lutein daily. PERTINENT IMAGING PERFORMED DURING HOSPITAL STAY: CT of abdomen and pelvis. Impression: Moderate amount of stool without obstruction, moderate diverticulosis, borderline wall thickening descending colon some of this is incomplete distention, there could be a limited superimposed diverticulitis or colitis. No other acute disease. PERTINENT LABORATORY DATA: White blood cell count on presentation 7.1. Sodium 125, noé at 123, increased to 135 on the day of discharge. HISTORY OF PRESENT ILLNESS AND HOSPITAL COURSE: An 87-year-old female past medical history as outlined in the history of present illness on the day of admission presented to the emergency room from [facility] with malaise and nausea. She is a difficult historian; however, it appears that she had had increasing nausea associated with vomiting, which brought her to the emergency room. She was unable to eat, she was admitted to the hospital. CT of the abdomen and pelvis was indicative of moderate amount of stool. On previous hospital stay it was thought the constipation was contributing to the patient's presenting symptoms. She was given MiraLAX in addition to her home medications. She had a bowel movement and her symptoms had resolved within 24 hours. It is unclear that she is taking MiraLAX consistently at home as there is no good oversight and she cannot tell me how frequent she has bowel movements. I stressed to her that she should be taking Colace, senna, and MiraLAX daily. In addition, I added a Bisacodyl suppository to use if she does not have bowel movement daily. Her hyponatremia was corrected with administration of normal saline indicating dehydration and emesis as the etiology of her hypovolemic hyponatremia. She is well appearing on the day of discharge, eating, felt back to her baseline; however, still a poor historian on the day of discharge. There were no complications during hospital stay. TIME SPENT: Greater than 45 minutes was spent in the discharge of this patient , greater than half was spent [id number] with the patient. [id number]/[facility] #: [id number] LIZA
== END 2017-11-04 14:25 | DRG 392 ==
LOC: ED 18:06 → OBSVTOIN 23:30 → MED 23:30
PROVIDERS: ADMIT Hospitalist; ATTEND Internal Medicine
DX: R11.2 Nausea with vomiting, unspecified (principal); E87.1 Hypo-osmolality and hyponatremia; K59.00 Constipation, unspecified; E86.0 Dehydration; F03.90 Unspecified dementia, unspecified severity, without behavioral disturbance, psychotic disturbance, mood disturbance, and anxiety; K21.9 Gastro-esophageal reflux disease without esophagitis; M06.9 Rheumatoid arthritis, unspecified; Z66 Do not resuscitate; F41.9 Anxiety disorder, unspecified; F32.9 Major depressive disorder, single episode, unspecified; G47.00 Insomnia, unspecified; M79.7 Fibromyalgia; G62.9 Polyneuropathy, unspecified; K57.90 Diverticulosis of intestine, part unspecified, without perforation or abscess without bleeding; Z96.642 Presence of left artificial hip joint; Z96.651 Presence of right artificial knee joint; Z90.710 Acquired absence of both cervix and uterus; Z88.8 Allergy status to other drugs, medicaments and biological substances; Z88.6 Allergy status to analgesic agent; Z85.42 Personal history of malignant neoplasm of other parts of uterus; Z91.041 Radiographic dye allergy status
CPT/HCPCS: 36415; 74019; 74177; 80048; 80053; 81003; 81015; 82140; 82150; 83605; 83690; 83735; 83880; 84484; 85025; 85027; 85610; 85730; 86140; 87641; 93005; 99284; A9270-GY; J0780; J1644; J2405; J2765; Q9967

== ENCOUNTER 2017-11-11 17:46 | Emergency (ER) | payer MEDICARE, OTHER ==
[2017-11-11] MEDS ORDERED: NS 0.9% 500 ML* 500 ML IV ONE (18:41)
[2017-11-11] MEDS ORDERED: Ondansetron ODT TAB* 4 MG PO ONE (18:41)
[2017-11-11] MEDS ORDERED: Acetaminophen TAB* 325 MG PO ONE (18:41)
[2017-11-11 18:53] LABS: ABS Basophils 0 10^3/ul (0-0.2); ABS Eosinophils 0.1 10^3/ul (0-0.6); ABS Lymphocytes 0.6 10^3/ul (1.0-4.8); ABS Monocytes 0.7 10^3/ul (0-0.8); ABS Neutrophils 6.1 10^3/ul (1.5-7.7); ABS Nucleated RBC 0 10^3/ul; Eosinophil % 1.9 % (0-6); Hematocrit 40 % (35-47); Hemoglobin 13.7 g/dl (12.0-16.0); Lymphocyte % 8.4 % (25-47); Mean Corpuscular HGB Conc 34 g/dl (31-36); Mean Corpuscular Hemoglobin 33 pg (27-31); Mean Corpuscular Volume 96 fL (80-97); Mean Platelet Volume 7.7 um3 (7.4-10.4); Nucleated Red Blood Cells % 0; Platelet Count 207 10^3/ul (150-450); Red Cell Distribution Width 13 % (10.5-15); White Blood Count 7.6 10^3/ul (3.5-10.8)
[2017-11-11 19:09] LABS: EGFR Non-African American 89.8 (>60)
[2017-11-11] MEDS ORDERED: Labetalol IV* 5 MG/ML 20 ML VIAL IV PUSH ONE (19:12)
--- NOTE | 2017-11-11 19:43 | RAD ---
EXAM: CT Head Without Intravenous Contrast CLINICAL HISTORY: 87 years old, female; Signs and symptoms; Other: Headache; Additional info: STEVENS, nausea, elevated BP TECHNIQUE: Axial computed tomography images of the head/brain without intravenous contrast. All CT scans at this facility use at least one of these dose optimization techniques: automated exposure control; mA and/or kV adjustment per patient size (includes targeted exams where dose is matched to clinical indication); or iterative reconstruction. COMPARISON: No relevant prior studies available. FINDINGS: Brain: Nonspecific hypodensities of the periventricular and deep subcortical white matter, most likely secondary to chronic small vessel ischemic change. No intracranial hemorrhage or extra-axial fluid collection. No evidence of mass effect or midline shift. Alvarez-white matter differentiation is normal. Ventricles: Prominence of the ventricles and sulci, most likely attributed to parenchymal volume loss. Bones/joints: Unremarkable. No acute fracture. Soft tissues: Unremarkable. Sinuses: Unremarkable as visualized. No acute sinusitis. Mastoid air cells: Unremarkable as visualized. No mastoid effusion. IMPRESSION: No acute intracranial pathology. To contact [facility] with a general question: Operations Center - [phone] For direct physician to physician contact: Physician Hotline - [phone] [facility] [place] ([facility] Facility ID #[id number])
[2017-11-11] MEDS ORDERED: Ondansetron INJ* 2 MG/ML VIAL IV ONE (20:06)
[2017-11-11] MEDS ORDERED: Metoclopramide IV* 5 MG/ML 2 ML VIAL IV ONE (20:07)
[2017-11-11] MEDS ORDERED: diPHENhydraMINE IV* 50 MG/ML 1 ml VIAL (BENADRYL) IV ONE (20:08)
--- NOTE | 2017-11-11 20:10 | ED ---
Headache - HPI Summary HPI Summary: Patient with history of dementia sent from [facility], per [facility] report, for evaluation of STEVENS, decreased appetite, nausea, HTN. Patient is poor historian, complains of diffuse STEVENS and Nausea starting today, but otherwise says she just "feels sick", but cannot be more specific. States "headache not too bad". When asked specific questions she just answers "I don't know". Per [facility] report, medical history is major depressive disorder, vascular dementia, fibromyalgia, anxiety disorder, rheumatoid arthritis, insomnia, migraine, constipation. - History Of Current Complaint Chief Complaint: EDHeadache Stated Complaint: HYPERTENSION Time Seen by Provider: 11/11/17 18:28 Hx Obtained From: Medical Records Hx From Patient Unobtainable Due To: Dementia Onset/Duration: Started hours ago Initially Headache Was: Moderate Currently Pain Is: Moderate Location of Headache: Diffuse Associated Signs And Symptoms: Nausea - Allergies/Home Medications Allergies/Adverse Reactions: Allergies Allergy/AdvReac Type Severity Reaction Status Date / Time diazepam Allergy Intermediate Hives Verified 11/11/17 18:05 blue dye Allergy Unknown Unknown Verified 11/11/17 18:05 Reaction Details duloxetine Allergy Unknown Unknown Verified 11/11/17 18:05 Reaction Details pregabalin AdvReac Severe Joint Pain Verified 11/11/17 18:05 meperidine AdvReac Intermediate Nausea And Verified 11/11/17 18:05 Vomiting onabotulinumtoxinA AdvReac Intermediate Nausea And Verified 11/11/17 18:05 [From Botox] Vomiting oxycodone AdvReac Intermediate Nausea And Verified 11/11/17 18:05 Vomiting propoxyphene AdvReac Intermediate Nausea And Verified 11/11/17 18:05 [From Darvocet-N] Vomiting Home Medications: Home Medications Lidocaine [Aspercreme Lidocaine Max] 4 % TOPICAL Q8HR PRN 11/11/17 [History Confirmed 11/11/17] Oxymetazoline 0.05% NASAL SPR* [Afrin 0.05% NASAL SPRAY*] 2 spray BOTH NARES Q4HR PRN 11/11/17 [History Confirmed 11/11/17] Senna TAB* [Senokot TAB*] 2 tab PO BEDTIME PRN 11/11/17 [History Confirmed 11/11] PMH/Surg Hx/FS Hx/Imm Hx Endocrine/Hematology History: Denies: Hx Anticoagulant Therapy, Hx Diabetes Cardiovascular History: Denies: Hx Auto Implanted Cardiovert Defib, Hx Hypertension Musculoskeletal History: Reports: Hx Arthritis, Hx Fibromyalgia, Other Musculoskeletal History - bilateral hip replacement, arm fracture Sensory History: Reports: Hx Contacts or Glasses - pt doesn't have glassess with her Denies: Hx Deafness, Hx Hearing Aid Opthamlomology History: Reports: Hx Contacts or Glasses - pt doesn't have glassess with her Neurological History: Reports: Hx Dementia, Hx Headaches, Other Neuro Impairments/Disorders - fibromyalgia, insomnia - Cancer History Cancer Type, 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 appendectomy. TKA. bilat YOANA. back surgery - Immunization History Date of Tetanus Vaccine: unk Date of Influenza Vaccine: unk Infectious Disease History: No Infectious Disease History: Denies: Traveled Outside the [place] in Last 30 Days - Family History Known Family History: Negative: Hypertension, Diabetes - Social History Alcohol Use: None Hx Substance Use: No Substance Use Type: Reports: None Hx Tobacco Use: No Smoking Status (MU): Never Smoked Tobacco Have You Smoked in the Last Year: No Review of Systems - ROS Summary Review of Systems Summary: Patient says "I don't know" to most specific questions about history of present illness or review of systems. Eyes: Negative ENT: Negative Cardiovascular: Negative Respiratory: Negative Gastrointestinal: Negative All Other Systems Reviewed And Are Negative: No Physical Exam - Summary Physical Exam Summary: Neuro exam normal. No pain with palpation of head, face, neck, back, chest, abdomen. Patient moving bilateral upper and lower extremities without indication of pain. Lung sounds clear to auscultation bilaterally. No indication of trauma or fall. Patient alert intermittently oriented. Responds appropriately intermittently, and then just says I don't know when asked about history of present illness or ROS questions. Triage Information Reviewed: Yes Vital Signs On Initial Exam: Initial Vitals Temp Pulse Resp BP Pulse Ox 98.2 F 76 14 182/110 96 11/11/17 17:51 11/11/17 17:51 11/11/17 17:51 11/11/17 17:51 11/11/17 17:51 Vital Signs Reviewed: Yes Completion Of Physical Exam Limited Due To: Dementia Appearance: Positive: Well-Appearing Skin: Positive: Warm Head/Face: Positive: Normal Head/Face Inspection Eyes: Positive: Normal ENT: Positive: Normal ENT inspection Neck: Positive: Supple Respiratory/Lung Sounds: Positive: Clear to Auscultation Cardiovascular: Positive: Normal Abdomen Description: Positive: Nontender Musculoskeletal: Positive: Normal Neurological: Positive: Normal Psychiatric: Positive: Normal AVPU Assessment: Alert - [place] Coma Scale Best Eye Response: 4 - Spontaneous Best Motor Response: 6 - Obeys Commands Best Verbal Response: 5 - Oriented Coma Scale Total: 15 Diagnostics - Vital Signs Vital Signs Temp Pulse Resp BP Pulse Ox 11/11/17 19:24 79 13 186/110 98 11/11/17 19:00 78 22 93 11/11/17 18:54 81 18 187/106 96 11/11/17 18:24 76 19 188/113 94 11/11/17 18:00 75 14 95 11/11/17 17:54 76 18 182/110 96 11/11/17 17:52 77 15 94 11/11/17 17:51 98.2 F 76 14 182/110 96 - Laboratory Lab Results: Lab Results 11/11/17 11/11/17 11/11/17 Range/Units 18:45 18:45 18:45 WBC 7.6 (3.5-10.8) 10^3/ul RBC 4.20 (4.00-5.40) 10^6/ul Hgb 13.7 (12.0-16.0) g/dl Hct 40 (35-47) % MCV 96 (80-97) fL MCH 33 H (27-31) pg MCHC 34 (31-36) g/dl RDW 13 (10.5-15) % Plt Count 207 (150-450) 10^3/ul MPV 7.7 (7.4-10.4) um3 Neut % (Auto) 79.8 (38-83) % Lymph % (Auto) 8.4 L (25-47) % Dunn % (Auto) 9.6 H (0-7) % Eos % (Auto) 1.9 (0-6) % Baso % (Auto) 0.3 (0-2) % Absolute Neuts (auto) 6.1 (1.5-7.7) 10^3/ul Absolute Lymphs (auto) 0.6 L (1.0-4.8) 10^3/ul Absolute Monos (auto) 0.7 (0-0.8) 10^3/ul Absolute Eos (auto) 0.1 (0-0.6) 10^3/ul Absolute Basos (auto) 0 (0-0.2) 10^3/ul Absolute Nucleated RBC 0 10^3/ul Nucleated RBC % 0 Sodium 127 L (135-145) mmol/L Potassium 3.8 (3.5-5.0) mmol/L Chloride 93 L (101-111) mmol/L Carbon Dioxide 26 (22-32) mmol/L Anion Gap 8 (2-11) mmol/L BUN 15 (6-24) mg/dL Creatinine 0.63 (0.51-0.95) mg/dL Est GFR ( Amer) 108.7 (>60) Est GFR (Non-Af Amer) 89.8 (>60) BUN/Creatinine Ratio 23.8 H (8-20) Glucose 111 H (70-100) mg/dL Lactic Acid 0.5 (0.5-2.0) mmol/L Calcium 9.0 (8.6-10.3) mg/dL Total Bilirubin 0.50 (0.2-1.0) mg/dL AST 19 (13-39) U/L ALT 14 (7-52) U/L Alkaline Phosphatase 79 (34-104) U/L Troponin I 0.00 (<0.04) ng/mL C-Reactive Protein 6.74 (<8.01) mg/L Total Protein 6.8 (6.4-8.9) g/dL Albumin 4.3 (3.2-5.2) g/dL Globulin 2.5 (2-4) g/dL Albumin/Globulin Ratio 1.7 (1-3) TSH Pending Result Diagrams: 11/11/17 18:45 11/11/17 18:45 Lab Statement: Any lab studies that have been ordered have been reviewed, and results considered in the medical decision making process. Headache Course/Dx - Course Course Of Treatment: Patient with history of dementia sent from [facility], per [facility] report, for evaluation of STEVENS, decreased appetite, nausea, HTN. Patient is poor historian, complains of diffuse STEVENS and Nausea starting today, but otherwise says she just "feels sick", but cannot be more specific. States "headache not too bad". When asked specific questions she just answers "I don' t know". Per [facility] report, medical history is major depressive disorder, vascular dementia, fibromyalgia, anxiety disorder, rheumatoid arthritis, insomnia, migraine, constipation. Physical exam:Neuro exam normal. No pain with palpation of head, face, neck, back, chest, abdomen. Patient moving bilateral upper and lower extremities without indication of pain. Lung sounds clear to auscultation bilaterally. No indication of trauma or fall. Patient alert intermittently oriented. Responds appropriately intermittently, and then just says I don't know when asked about history of present illness or ROS questions. CT head negative. Labs unremarkable. EKG unremarkable. Blood pressure reduced from 182/110 to 159/88 with labetalol 10mg IV. Patient alternately states headache and nausea 'better", and then states she "feels sick ". Has not or will not provide specifics on why she feels sick. Only specific symptoms mentioned have been headache and nausea. Physical exam unremarkable. No active vomiting here in the ED. Patient does not appear to be in any observable pain. Not avoiding light, calm and nontoxic appearing. Patient sleeping, is alert and oriented whenever she is woken up. Patient will be discharged back to group home facility. - Diagnoses Provider Diagnoses: Headache, Nausea Discharge - Sign-Out/Discharge Documenting (check all that apply): Patient Departure - Discharge Plan Condition: Stable Disposition: HOME Patient Education Materials: Migraine Headache (ED), Acute Nausea and Vomiting (ED) Referrals: Ca Gomez MD [Primary Care Provider] - Additional Instructions: Follow-up with primary care. Return to the ED for any new or worsening symptoms - Billing Disposition and Condition Condition: STABLE Disposition: Home
[2017-11-11 23:29] VITALS: BP 158/88
--- NOTE | 2017-11-12 07:18 | RAD ---
INDICATION: Headache. Decreased p.o. intake. Nausea. COMPARISON: November 01, [address] and July 02, 2017 chest radiograph. TECHNIQUE: Dual energy PA and routine lateral views of the chest were obtained. REPORT: Patchy airspace consolidation at the RIGHT lung base likely involving the RIGHT middle lobe is new compared with the prior exam. Negative for volume loss to favor atelectasis. Negative for pleural effusions or pneumothorax. Upper normal heart size. Unremarkable central pulmonary vasculature and mediastinal contours. IMPRESSION: #. Probable RIGHT middle lobe pneumonia. #. Elevated lung volumes favoring obstructive lung disease. R1
== END 2017-11-11 23:28 | disposition home or self-care (01) ==
LOC: ED 17:46
DX: R51 Headache (principal); R11.0 Nausea; F01.50 Vascular dementia, unspecified severity, without behavioral disturbance, psychotic disturbance, mood disturbance, and anxiety; R63.0 Anorexia; I10 Essential (primary) hypertension; F32.9 Major depressive disorder, single episode, unspecified; M79.7 Fibromyalgia; F41.9 Anxiety disorder, unspecified; M06.9 Rheumatoid arthritis, unspecified; G47.00 Insomnia, unspecified; K59.00 Constipation, unspecified; Z88.8 Allergy status to other drugs, medicaments and biological substances; Z88.5 Allergy status to narcotic agent
CPT/HCPCS: 36415; 70450; 71046; 80053; 83605; 83880; 84443; 84484; 85025; 86140; 93005; 96361; 96374; 96375; 99284; A9270-GY; J1200; J2765

== ENCOUNTER 2018-10-18 23:28 | Emergency (ER) | payer MEDICARE, BC ==
--- NOTE | 2018-10-19 00:03 | ED ---
Adult Trauma - HPI Summary HPI Summary: Patient complains of right lateral chest wall pain status post mechanical fall at 10 PM tonight. Denies head injury, LOC, headache, N/V, vision change, altered mental status, neck pain, CP, SOB, any other pain injury or symptoms. no anti-coag. - History of Current Complaint Chief Complaint: EDFlankPain Stated Complaint: FALL/FLANK PAIN PER EMS Time Seen by Provider: 10/18/18 23:53 Hx Obtained From: Patient Mechanism of Injury: Fall Loss of Consciousness: no loss of consciousness Onset Severity: Severe Current Severity: Severe Pain Intensity: 9 Pain Scale Used: 0-10 Numeric Location: Back Character: Dull, Aching Aggravating Factor(s): Movement, Deep Breaths Alleviating Factor(s): Nothing Associated Signs & Symptoms: Positive: Negative - Additional Pertinent History Primary Care Physician: LESV[facility] - Allergy/Home Medications Allergies/Adverse Reactions: Allergies Allergy/AdvReac Type Severity Reaction Status Date / Time diazepam Allergy Intermediate Hives Verified 11/11/17 18:05 blue dye Allergy Unknown Unknown Verified 11/11/17 18:05 Reaction Details duloxetine Allergy Unknown Unknown Verified 11/11/17 18:05 Reaction Details pregabalin AdvReac Severe Joint Pain Verified 11/11/17 18:05 meperidine AdvReac Intermediate Nausea And Verified 11/11/17 18:05 Vomiting onabotulinumtoxinA AdvReac Intermediate Nausea And Verified 11/11/17 18:05 [From Botox] Vomiting oxycodone AdvReac Intermediate Nausea And Verified 11/11/17 18:05 Vomiting propoxyphene AdvReac Intermediate Nausea And Verified 11/11/17 18:05 [From Darvocet-N] Vomiting PMH/Surg Hx/FS Hx/Imm Hx Endocrine/Hematology History: Denies: Hx Anticoagulant Therapy, Hx Diabetes Cardiovascular History: Denies: Hx Auto Implanted Cardiovert Defib, Hx Hypertension History: Denies: Hx Dialysis Musculoskeletal History: Reports: Hx Arthritis, Hx Fibromyalgia, Other Musculoskeletal History - bilateral hip replacement, arm fracture Sensory History: Reports: Hx Contacts or Glasses - pt doesn't have glassess with her Denies: Hx Deafness, Hx Hearing Aid Opthamlomology History: Reports: Hx Contacts or Glasses - pt doesn't have glassess with her Neurological History: Reports: Hx Dementia, Hx Headaches, Other Neuro Impairments/Disorders - fibromyalgia, insomnia - Cancer History Cancer Type, 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 appendectomy. TKA. bilat [facility]. back surgery - Immunization History Date of Tetanus Vaccine: unk Date of Influenza Vaccine: unk Infectious Disease History: No Infectious Disease History: Denies: Traveled Outside the [place] in Last 30 Days - Family History Known Family History: Negative: Hypertension, Diabetes - Social History Alcohol Use: None Hx Substance Use: No Substance Use Type: Reports: None Hx Tobacco Use: No Smoking Status (MU): Never Smoked Tobacco Have You Smoked in the Last Year: No Review of Systems Constitutional: Negative Eyes: Negative ENT: Negative Cardiovascular: Negative Respiratory: Negative Gastrointestinal: Negative Genitourinary: Negative Musculoskeletal: Other Skin: Negative Neurological: Negative Psychological: Normal All Other Systems Reviewed And Are Negative: Yes Physical Exam - Summary Physical Exam Summary: Lung sounds clear to auscultation bilaterally. RRR. No ecchymosis, erythema, deformity, swelling noted to back, right side chest wall, anterior chest wall, abdomen. Patient moving all 4 extremities freely. Patient writhing and moaning with pain while answering history of present illness questions, but if distracted does not respond to palpation of right side back or right side chest wall. When patient unaware and focused on physical exam patient reacts as if there is severe pain. Abdomen soft nontender. Patient repeatedly asking for pain medication. No evidence of, to mouth, face, head. Full range of motion of jaw and neck. Patient moving all 4 extremities freely. Triage Information Reviewed: Yes Vital Signs On Initial Exam: Initial Vitals Temp Pulse Resp BP Pulse Ox 98.5 F 77 18 193/99 99 10/18/18 23:49 10/18/18 23:49 10/18/18 23:49 10/18/18 23:49 10/18/18 23:49 Vital Signs Reviewed: Yes Appearance: Positive: Well-Appearing Skin: Positive: Warm Head/Face: Positive: Normal Head/Face Inspection Eyes: Positive: Normal ENT: Positive: Normal ENT inspection Dental: Negative: Dental Fracture @, Bleeding Neck: Positive: Supple Respiratory/Lung Sounds: Positive: Clear to Auscultation Cardiovascular: Positive: Normal Abdomen Description: Positive: Nontender Musculoskeletal: Positive: Normal Neurological: Positive: Normal Psychiatric: Positive: Normal AVPU Assessment: Alert - [place] Coma Scale Best Eye Response: 4 - Spontaneous Best Motor Response: 6 - Obeys Commands Best Verbal Response: 5 - Oriented Coma Scale Total: 15 Diagnostics - Vital Signs Vital Signs Temp Pulse Resp BP Pulse Ox 10/18/18 23:49 98.5 F 77 18 193/99 99 - Laboratory Lab Statement: Any lab studies that have been ordered have been reviewed, and results considered in the medical decision making process. Adult Trauma Course/Dx - Course Course Of Treatment: Patient complains of right lateral chest wall pain status post mechanical fall at 10 PM tonight. Denies head injury, LOC, headache, N/V, vision change, altered mental status, neck pain, CP, SOB, any other pain injury or symptoms. no anti-coag. Vital signs within normal limits. X-ray ribs and chest negative. Patient fell asleep after taking Tylenol. - Diagnoses Provider Diagnoses: Fall, Rib pain on right side Discharge ED - Sign-Out/Discharge Documenting (check all that apply): Patient Departure Patient Received Moderate/Deep Sedation with Procedure: No - Discharge Plan Condition: Stable Disposition: HOME Patient Education Materials: Fall Prevention for Older Adults (ED), Rib Contusion (ED) Referrals: Ca Gomez MD [Primary Care Provider] - Additional Instructions: Tylenol or ibuprofen for right side rib pain. Return to the ED for any new or worsening symptoms. - Billing Disposition and Condition Condition: STABLE Disposition: Home
[2018-10-19] MEDS ORDERED: Acetaminophen TAB* 325 MG PO ONE (00:11)
[2018-10-19 02:45] VITALS: BP 166/84
[2018-10-19] MEDS ORDERED: Ibuprofen TAB* 400 MG ONE (02:55)
[2018-10-19] MEDS ORDERED: Ibuprofen TAB* 400 MG PO ONE (02:55)
--- NOTE | 2018-10-19 14:18 | PN ---
Progress Note - Progress Note Date of Service: 10/18/18 Note: Final xr read per radiology. Pt. resides at [facility]. I spoke with pt.'s nurse at [facility] today at 1412. She will f.u with pt.'s PCP for f.u. IMPRESSION: #. Nondisplaced fractures noted at the RIGHT ninth, 10th, and 11th ribs posterolaterally. Grossly nondisplaced fracture noted at the LEFT fourth rib laterally which may be chronic/healed. #. Negative for pleural effusion or pneumothorax. R1F Preliminary Imaging Read R1F <Electronically signed by Kailash Spencer MD in [place]> 10/19/18 0802 Dictated By: Kailash Spencer MD Dictated Date/Time: 10/19/18757 Transcribed Date/Time: 10/19/18757 Copy to:
== END 2018-10-19 02:44 | disposition home or self-care (01) ==
LOC: ED 23:28
DX: R07.81 Pleurodynia (principal); S22.41XA Multiple fractures of ribs, right side, initial encounter for closed fracture; W19.XXXA Unspecified fall, initial encounter; Y92.9 Unspecified place or not applicable; M79.7 Fibromyalgia; Z90.710 Acquired absence of both cervix and uterus; Z90.89 Acquired absence of other organs; Z96.643 Presence of artificial hip joint, bilateral; Z96.659 Presence of unspecified artificial knee joint; Z88.5 Allergy status to narcotic agent; Z88.8 Allergy status to other drugs, medicaments and biological substances
CPT/HCPCS: 71111; 99282; A9270-GY

== ENCOUNTER 2020-03-23 11:45 | Inpatient (IN) ==
[2020-03-23] MEDS ORDERED: NS 0.9% 1000 ml BAG 1,000 ML IV ONE (11:47)
[2020-03-23 12:14] LABS: ABS Eosinophils 0.2 10^3/ul (0-0.6); ABS Lymphocytes 1.2 10^3/ul (1.0-4.8); ABS Monocytes 0.8 10^3/ul (0-0.8); ABS Neutrophils 4.1 10^3/ul (1.5-7.7); Eosinophil % 2.5 %; Hematocrit 42 % (35-47); Hemoglobin 14.1 g/dL (12.0-16.0); Lymphocyte % 19.7 %; Mean Corpuscular HGB Conc 34 g/dL (31-36); Mean Corpuscular Hemoglobin 32 pg (27-31); Mean Corpuscular Volume 96 fL (80-97); Mean Platelet Volume 8.3 fL (7.4-10.4); Nucleated Red Blood Cells % 0.2; Platelet Count 228 10^3/uL (150-450); Red Blood Count 4.37 10^6 /uL (3.70-4.87); Red Cell Distribution Width 13 % (10-15); White Blood Count 6.3 10^3/uL (3.5-10.8)
[2020-03-23 12:36] LABS: Troponin I 0.01 ng/mL (<0.03)
[2020-03-23 12:40] LABS: Albumin 4.3 g/dL (3.2-5.2); Albumin/Globulin Ratio 1.5 (1-3); BUN/Creatinine Ratio 30.8 (8-20); Calcium 9.1 mg/dL (8.6-10.3); EGFR African American 60.5 (>60); Globulin 2.9 g/dL (2-4); HDL Cholesterol 50.5 mg/dL; Total Bilirubin 0.4 mg/dL (0.2-1.0); Total Protein 7.2 g/dL (6.4-8.9)
[2020-03-23 12:46] LABS: Activated Partial Thrombo Time 31.2 seconds (26.0-38.0)
[2020-03-23 13:06] LABS: Potassium 4.5 mmol/L (3.5-5.0)
[2020-03-23] MEDS ORDERED: Senna TAB 8.6 mg TAB PO PRN (14:27)
[2020-03-23] MEDS ORDERED: LIDOCAINE 4% TOPICAL PRN (14:27)
[2020-03-23] MEDS ORDERED: Saline NASAL SPRAY 0.65% BTL BOTH NARES PRN (14:27)
[2020-03-23] MEDS ORDERED: Calcium Carb (TUMS) 500 mg CHEW TAB PO PRN (14:43)
[2020-03-23 15:09] LABS: C Reactive Protein 15.45 mg/L (<8.01)
[2020-03-23] MEDS: Polyethylene Glycol 3350 17 GM PACKET PO SCH (20:00)
[2020-03-23] MEDS: Dextran 70/Hypromellose Tears Eye Drops 15 ml BTL (for Artificials Tears) BOTH EYES SCH (20:03)
[2020-03-23] MEDS ORDERED: Multivitamins/Mins AREDS2 (NF) CAP PO SCH (21:00)
[2020-03-23] MEDS ORDERED: Carbamide Peroxide 6.5% OTIC 15 ML BTL BOTH EARS SCH (21:00)
[2020-03-23 23:40] LABS: Urine Appearance Cloudy; Urine Bilirubin Negative (Negative); Urine Blood Negative (Negative); Urine Color Yellow; Urine Glucose Negative (Negative); Urine Ketones Negative (Negative); Urine Nitrite Negative (Negative); Urine Protein Negative (Negative); Urine Specific Gravity 1.018 (1.010-1.030); Urine Urobilinogen Negative (Negative)
[2020-03-23 23:50] LABS: Urine Bacteria Absent (Absent); Urine Red Blood Cell Absent (Absent); Urine Squamous Epithelial Cell Present (Absent); Urine White Blood Cell 1+(6-10/hpf) (Absent)
[2020-03-24 06:15] LABS: ABS Basophils 0.1 10^3/ul (0-0.2); ABS Eosinophils 0.3 10^3/ul (0-0.6); ABS Lymphocytes 1.3 10^3/ul (1.0-4.8); ABS Monocytes 0.7 10^3/ul (0-0.8); ABS Neutrophils 4.7 10^3/ul (1.5-7.7); Eosinophil % 3.6 %; Hematocrit 39 % (35-47); Lymphocyte % 17.8 %; Mean Corpuscular HGB Conc 33 g/dL (31-36); Mean Corpuscular Hemoglobin 32 pg (27-31); Mean Corpuscular Volume 96 fL (80-97); Mean Platelet Volume 8.2 fL (7.4-10.4); Platelet Count 210 10^3/uL (150-450); Red Blood Count 4.06 10^6 /uL (3.70-4.87); Red Cell Distribution Width 13 % (10-15); White Blood Count 7.1 10^3/uL (3.5-10.8)
[2020-03-24 06:26] LABS: BUN/Creatinine Ratio 32.5 (8-20); Calcium 9.1 mg/dL (8.6-10.3); EGFR African American 85.6 (>60); EGFR Non-African American 70.7 (>60); Potassium 4.3 mmol/L (3.5-5.0)
[2020-03-24 07:13] LABS: HDL Cholesterol 52.4 mg/dL
[2020-03-24] MEDS: Polyethylene Glycol 3350 17 GM PACKET PO SCH (08:45)
[2020-03-24] MEDS: Dextran 70/Hypromellose Tears Eye Drops 15 ml BTL (for Artificials Tears) BOTH EYES SCH (08:49)
[2020-03-24] MEDS ORDERED: Multivitamins/Minerals TAB PO SCH (09:00)
[2020-03-24 11:22] VITALS: BP 158/84
== END 2020-03-24 13:45 | disposition home or self-care (01) | DRG 69 ==
LOC: ED 11:45 → MEDTELE 13:33
PROVIDERS: ADMIT Hospitalist; ATTEND Internal Medicine

== ENCOUNTER 2020-03-28 16:29 | Inpatient (IN) ==
[2020-03-28] MEDS ORDERED: NS 0.9% 1000 ml BAG 1,000 ML IV ONE ×2 (16:41→18:50)
[2020-03-28] MEDS ORDERED: Morphine 4 MG/ML VIAL (1 ml) IV ONE ×3 (16:42→18:50)
[2020-03-28] MEDS ORDERED: Ondansetron 4 mg VIAL 2 MG/ML 2 ml VIAL IV ONE (16:43)
[2020-03-28] MEDS ORDERED: Propofol 10 MG/ML 20 ML BTL IV PUSH ONE (20:12)
[2020-03-28 22:54] LABS: ABS Lymphocytes 0.9 10^3/ul (1.0-4.8); ABS Monocytes 1.1 10^3/ul (0-0.8); ABS Neutrophils 13.9 10^3/ul (1.5-7.7); Eosinophil % 0.2 %; Hematocrit 34 % (35-47); Hemoglobin 11.1 g/dL (12.0-16.0); Lymphocyte % 5.9 %; Mean Corpuscular HGB Conc 33 g/dL (31-36); Mean Corpuscular Hemoglobin 32 pg (27-31); Mean Corpuscular Volume 98 fL (80-97); Mean Platelet Volume 8.4 fL (7.4-10.4); Platelet Count 214 10^3/uL (150-450); Red Blood Count 3.49 10^6 /uL (3.70-4.87); Red Cell Distribution Width 13 % (10-15)
[2020-03-28 23:03] LABS: Calcium 8.6 mg/dL (8.6-10.3); Potassium 4.2 mmol/L (3.5-5.0); Total Bilirubin 0.4 mg/dL (0.2-1.0)
[2020-03-28 23:09] LABS: Albumin/Globulin Ratio 1.9 (1-3); BUN/Creatinine Ratio 36.9 (8-20); EGFR African American 77.4 (>60); Globulin 2.1 g/dL (2-4); Total Protein 6.1 g/dL (6.4-8.9)
[2020-03-28 23:10] LABS: C Reactive Protein 5.99 mg/L (<8.01)
[2020-03-28] MEDS ORDERED: Ondansetron 4 mg VIAL 2 MG/ML 2 ml VIAL IV PRN (23:13)
[2020-03-28] MEDS ORDERED: Senna TAB 8.6 mg TAB PO PRN (23:19)
[2020-03-29] MEDS ORDERED: Calcium Carb (TUMS) 500 mg CHEW TAB PO PRN (01:09)
[2020-03-29] MEDS: Morphine 2 MG/ML SYRINGE IV PRN ×3 (03:59→23:43)
[2020-03-29 06:12] LABS: ABS Lymphocytes 1.2 10^3/ul (1.0-4.8); ABS Monocytes 1.4 10^3/ul (0-0.8); ABS Neutrophils 11.6 10^3/ul (1.5-7.7); Hematocrit 31 % (35-47); Hemoglobin 10.5 g/dL (12.0-16.0); Lymphocyte % 8.2 %; Mean Corpuscular HGB Conc 33 g/dL (31-36); Mean Corpuscular Hemoglobin 33 pg (27-31); Mean Corpuscular Volume 97 fL (80-97); Mean Platelet Volume 8.6 fL (7.4-10.4); Platelet Count 201 10^3/uL (150-450); Red Blood Count 3.22 10^6 /uL (3.70-4.87); Red Cell Distribution Width 13 % (10-15); White Blood Count 14.2 10^3/uL (3.5-10.8)
[2020-03-29 06:22] LABS: Calcium 8.2 mg/dL (8.6-10.3)
[2020-03-29 06:28] LABS: BUN/Creatinine Ratio 42.9 (8-20); EGFR African American 85.6 (>60); EGFR Non-African American 70.7 (>60)
[2020-03-29] MEDS ORDERED: fentaNYL 100 mcg/2 ml 50 MCG/ML VIAL ONE ×2 (06:38→13:40)
[2020-03-29 06:52] LABS: Potassium 4.6 mmol/L (3.5-5.0)
[2020-03-29] MEDS: Polyethylene Glycol 3350 17 GM PACKET PO SCH ×2 (07:39→20:43)
[2020-03-29] MEDS ORDERED: Morphine 2 MG/ML SYRINGE IV ONE (08:11)
[2020-03-29 11:07] LABS: Urine Appearance Clear; Urine Bilirubin Negative (Negative); Urine Blood Negative (Negative); Urine Color Yellow; Urine Glucose Negative (Negative); Urine Ketones Negative (Negative); Urine Nitrite Negative (Negative); Urine Protein Negative (Negative); Urine Urobilinogen Negative (Negative)
[2020-03-29] MEDS ORDERED: HYDROmorphone 0.5 MG/0.5 ML SYRINGE IV ONE (13:09)
[2020-03-29] MEDS ORDERED: HYDROmorphone 0.5 MG/0.5 ML SYRINGE ONE (13:12)
[2020-03-29] MEDS ORDERED: Propofol 10 MG/ML 20 ML BTL ONE (13:39)
[2020-03-29] MEDS ORDERED: Ketamine HCL 50 mg/ml 10 ml VIAL (500 MG) ONE (14:04)
[2020-03-29] MEDS ORDERED: Phenylephrine 40 mcg/mL 10mL (400mcg) SYRINGE ONE (14:11)
[2020-03-29] MEDS ORDERED: fentaNYL 100 mcg/2 ml 50 MCG/ML VIAL IV PRN (14:26)
[2020-03-29] MEDS ORDERED: HYDROmorphone 1 MG/1 ML SYRINGE IV PRN (14:26)
[2020-03-29] MEDS ORDERED: Naloxone 0.4 mg VIAL 0.4 mg/ml 1 ml VIAL IV PRN (14:26)
[2020-03-29] MEDS ORDERED: Ondansetron 4 mg VIAL 2 MG/ML 2 ml VIAL IV PRN (14:26)
[2020-03-29] MEDS: Enoxaparin 40 MG/0.4 ML SYR SUBCUT SCH (17:37)
[2020-03-30 05:31] LABS: ABS Lymphocytes 1.2 10^3/ul (1.0-4.8); ABS Monocytes 1.5 10^3/ul (0-0.8); ABS Neutrophils 10.9 10^3/ul (1.5-7.7); Eosinophil % 0.2 %; Hematocrit 27 % (35-47); Hemoglobin 8.9 g/dL (12.0-16.0); Lymphocyte % 8.5 %; Mean Corpuscular HGB Conc 33 g/dL (31-36); Mean Corpuscular Hemoglobin 32 pg (27-31); Mean Corpuscular Volume 97 fL (80-97); Mean Platelet Volume 8.6 fL (7.4-10.4); Platelet Count 192 10^3/uL (150-450); Red Blood Count 2.81 10^6 /uL (3.70-4.87); Red Cell Distribution Width 13 % (10-15); White Blood Count 13.6 10^3/uL (3.5-10.8)
[2020-03-30 06:24] LABS: BUN/Creatinine Ratio 47.1 (8-20); Calcium 8.6 mg/dL (8.6-10.3); EGFR African American 95.6 (>60); Potassium 3.7 mmol/L (3.5-5.0)
[2020-03-30] MEDS: Polyethylene Glycol 3350 17 GM PACKET PO SCH ×2 (09:10→20:10)
[2020-03-30] MEDS: Enoxaparin 40 MG/0.4 ML SYR SUBCUT SCH (16:53)
[2020-03-31] MEDS: Polyethylene Glycol 3350 17 GM PACKET PO SCH ×2 (08:05→19:38)
[2020-03-31 08:40] LABS: ABS Eosinophils 0.1 10^3/ul (0-0.6); ABS Lymphocytes 1.2 10^3/ul (1.0-4.8); ABS Monocytes 1.2 10^3/ul (0-0.8); ABS Neutrophils 9.7 10^3/ul (1.5-7.7); Eosinophil % 1.2 %; Hematocrit 28 % (35-47); Hemoglobin 9.3 g/dL (12.0-16.0); Mean Corpuscular HGB Conc 33 g/dL (31-36); Mean Corpuscular Hemoglobin 32 pg (27-31); Mean Corpuscular Volume 97 fL (80-97); Mean Platelet Volume 8.8 fL (7.4-10.4); Platelet Count 197 10^3/uL (150-450); Red Blood Count 2.88 10^6 /uL (3.70-4.87); Red Cell Distribution Width 14 % (10-15); White Blood Count 12.2 10^3/uL (3.5-10.8)
[2020-03-31 08:58] LABS: BUN/Creatinine Ratio 52.5 (8-20); Calcium 8.8 mg/dL (8.6-10.3); EGFR African American 116.4 (>60); EGFR Non-African American 96.2 (>60)
[2020-03-31] MEDS: Enoxaparin 40 MG/0.4 ML SYR SUBCUT SCH (17:42)
[2020-04-01 06:51] LABS: ABS Eosinophils 0.1 10^3/ul (0-0.6); ABS Neutrophils 9.9 10^3/ul (1.5-7.7); Hematocrit 26 % (35-47); Hemoglobin 8.7 g/dL (12.0-16.0); Lymphocyte % 8.6 %; Mean Corpuscular HGB Conc 33 g/dL (31-36); Mean Corpuscular Hemoglobin 32 pg (27-31); Mean Corpuscular Volume 98 fL (80-97); Mean Platelet Volume 8.8 fL (7.4-10.4); Platelet Count 220 10^3/uL (150-450); Red Blood Count 2.68 10^6 /uL (3.70-4.87); Red Cell Distribution Width 13 % (10-15); White Blood Count 12.1 10^3/uL (3.5-10.8)
[2020-04-01 07:10] LABS: Calcium 8.3 mg/dL (8.6-10.3); Potassium 4.3 mmol/L (3.5-5.0)
[2020-04-01 07:15] LABS: BUN/Creatinine Ratio 47.4 (8-20); EGFR African American 121.1 (>60); EGFR Non-African American 100.1 (>60)
[2020-04-01] MEDS: Polyethylene Glycol 3350 17 GM PACKET PO SCH ×2 (08:16→21:56)
[2020-04-01] MEDS: Enoxaparin 40 MG/0.4 ML SYR SUBCUT SCH (16:31)
[2020-04-02 07:27] LABS: ABS Eosinophils 0.1 10^3/ul (0-0.6); ABS Monocytes 1.2 10^3/ul (0-0.8); ABS Neutrophils 10.6 10^3/ul (1.5-7.7); Eosinophil % 0.7 %; Hematocrit 25 % (35-47); Hemoglobin 8.2 g/dL (12.0-16.0); Lymphocyte % 7.9 %; Mean Corpuscular HGB Conc 33 g/dL (31-36); Mean Corpuscular Hemoglobin 32 pg (27-31); Mean Corpuscular Volume 98 fL (80-97); Mean Platelet Volume 8.8 fL (7.4-10.4); Platelet Count 261 10^3/uL (150-450); Red Blood Count 2.58 10^6 /uL (3.70-4.87); Red Cell Distribution Width 13 % (10-15)
[2020-04-02 07:42] LABS: BUN/Creatinine Ratio 54.4 (8-20); Calcium 8.6 mg/dL (8.6-10.3); EGFR African American 121.1 (>60); EGFR Non-African American 100.1 (>60); Potassium 4.2 mmol/L (3.5-5.0)
[2020-04-02] MEDS: Polyethylene Glycol 3350 17 GM PACKET PO SCH ×2 (09:44→20:01)
[2020-04-02] MEDS: Enoxaparin 40 MG/0.4 ML SYR SUBCUT SCH (17:03)
[2020-04-03 03:32] VITALS: BP 122/56
[2020-04-03] MEDS: Polyethylene Glycol 3350 17 GM PACKET PO SCH (08:54)
== END 2020-04-03 10:20 | DRG 561 ==
LOC: SSU 16:29 → ED 16:29 → SSU 03-29 05:27
PROVIDERS: ADMIT Internal Medicine; ATTEND Internal Medicine